=== PATIENT | male | born 1940 | race Caucasian/White ===

== ENCOUNTER → 2019-03-11 08:55 | Outpatient (CLI) | payer MEDICARE, OTHER, SELFPAY ==
--- NOTE | ~2019-03-11 | XR_ITS ---
EXAMINATION: XR chest 2V EXAM DATE: 03/11/2019 09:05 INDICATION: Pneumonia. TECHNIQUE: Frontal and lateral projections of the chest obtained and reviewed. Comparison is made to prior examination from 09/05/2017. FINDINGS: Multiple sternotomy wire breaks could indicate sternal dehiscence. There is aortic arteria l sclerosis. The lungs are clear. There are no pleural effusions. The cardiomediastinal silhouette is within normal limits. There is no pneumothorax suspected. Patient has diffuse idiopathic skeleta l hyperostosis (DISH). IMPRESSION: No acute cardiopulmonary findings. Reviewed, dictated and finalized at location B. ERSITY LIBRARIAN
== END ==
PROVIDERS: PCP Physician Assistant; Visit Provider Physician Assistant
DX: J18.9 Pneumonia, unspecified organism (principal)
CPT/HCPCS: 71046

== ENCOUNTER 2019-06-17 14:24 | Outpatient (CLI) | payer MEDICARE, OTHER, SELFPAY ==
[2019-06-17 14:48] LABS: Basophils Percent Auto 0.4 % (0.2-1.2); Eosinophils Absolute Auto 0.2 K/mm3 (0-0.3); Eosinophils Percent Auto 3.2 % (0-4.4); Hematocrit 36.4 % (42.0-52.0); Hemoglobin 11.3 g/dL (14.0-18.0); Immature Granulocyte Absolute 0.02 K/mm3 (0.00-0.031); Immature Granulocyte Percent A 0.3 % (0-0.5); Immature Reticulocyte Fraction 13.5 % (3.0-15.9); Mean Corpuscular Volume 90.3 fl (80-100); Mean Platelet Volume 12.7 fl (7.4-10.4); Monocytes Absolute Auto 0.7 K/mm3 (0.1-0.6); Monocytes Percent Auto 9.6 % (2.6-8.5); Neutrophils Absolute Auto 4.4 K/mm3 (1.3-6.7); Neutrophils Percent Auto 60.5 % (45.5-73.1); Platelet Count Result 151 k/mm3 (150-375); Red Blood Count 4.03 M/mm3 (4.6-6.20); Reticulocyte Hemoglobin Conten 36.2 pg (28.2-35.7); Reticulocyte Percent 1.52 % (0.7-4.3); Reticulocytes Absolute 0.06 B/L (32.2-175.7); White Blood Count 7.3 K/mm3 (4.5-10.0)
[2019-06-17 15:02] LABS: Platelet Estimate Adequate (Adequate)
[2019-06-17 15:03] LABS: Atypical Lymphocytes Present
[2019-06-17 15:08] LABS: Ovalocytes 1+ (NORMAL); Poikilocytosis 1+ (NORMAL)
[2019-06-17 16:32] LABS: Iron 116 ug/dL (49-181)
[2019-06-17 16:41] LABS: Percent Iron Saturation 36 % (20-50)
[2019-06-17 16:43] LABS: Alanine Aminotransferase 69 U/L (4-50); Alkaline Phosphatase 71 U/L (38-126); Aspartate Amino Transferase 58 U/L (17-59); Bilirubin,Total 0.3 mg/dL (0.2-1.3); Blood Urea Nitrogen 35 mg/dL (9-20); Calcium 8.7 mg/dL (8.4-10.2); Carbon Dioxide 27 mmol/L (22-30); Chloride 104 mmol/L (98-107); Estimated Glomerular Filt Rate 42; Glucose 101 mg/dL (75-110); Potassium 5.1 mmol/L (3.4-5.0); Sodium 138 mmol/L (137-145)
[2019-06-17 17:22] LABS: Vitamin B12 > 1000.0 pg/mL (239-931)
== END 2019-06-17 14:25 | disposition home or self-care (01) ==
LOC: ANHLAB 14:31
PROVIDERS: PCP Family Medicine; Visit Provider Internal Medicine Hematology & Oncology
DX: D64.9 Anemia, unspecified (principal)
CPT/HCPCS: 36415; 80053; 82607; 82728; 83540; 83550; 85025; 85046

== ENCOUNTER → 2019-10-08 13:35 | Outpatient (CLI) | payer MEDICARE, OTHER, SELFPAY ==
--- NOTE | ~2019-10-08 | XR_ITS ---
EXAMINATION: XR shoulder RT min 2V DATE: 10/08/2019 13:53 INDICATION: Right shoulder pain. TECHNIQUE: 4 views of right shoulder were obtained. COMPARISON: None. FINDINGS: Bone alignment is normal. No fracture. There is mild osteoarthritis of glenohumeral joint a nd acromioclavicular joint. Median sternotomy wires and mediastinal surgical clips are seen, likely f rom prior coronary artery bypass grafting. IMPRESSION: 1. Mild polyarticular osteoarthritis. Reviewed, dictated and finalized at location B.
== END ==
PROVIDERS: PCP Family Medicine; Visit Provider Family Medicine
DX: M19.011 Primary osteoarthritis, right shoulder (principal)
CPT/HCPCS: 73030

== ENCOUNTER 2020-03-31 16:35 | Inpatient (IN) | payer MEDICARE, OTHER, SELFPAY ==
--- NOTE | ~2020-03-31 | XR_ITS ---
EXAMINATION: XR chest 2V EXAM DATE: 03/31/2020 17:05 INDICATION: Shortness of breath and chest tightness. History COPD. TECHNIQUE: Frontal and lateral projections of the chest obtained and reviewed. Comparison is made to prior examination from 03/11/2019. FINDINGS: There are multiple sternotomy wire fractures with separation, possible sternal dehiscence. Similar appearance on prior study. The cardiomediastinal silhouette is prominent but magnified on th is AP technique an stable compared to prior study. There are small bilateral subpulmonic pleural e ffusions. Possible mild basilar pulmonary edema. There is pulmonary vascular congestion. There is no pneumothorax suspected. There are no osteoblastic or osteolytic lesions identified. There is aortic arteriosclerosis. IMPRESSION: Findings suspicious for CHF exacerbation. Reviewed, dictated and finalized at location A. SEWER
--- NOTE | ~2020-03-31 | US_ITS ---
EXAMINATION: US carotid duplex BI DATE: 04/01/2020 14:45 INDICATION: Carotid bruit TECHNIQUE: Grayscale, color Doppler, and pulsed Doppler images of the cervical carotid arteries were obtained. The degree of vessel stenosis is placed in one of the following categories: normal, <50%, 5 0-69%, >=70% but less than near-occlusion, near-occlusion, or total occlusion. Note that percent sten osis relative to normal distal artery lumen diameter is indirectly measured from velocity measurement s as described by Beltran, et al. Radiology 2003; 229:340-346. COMPARISON: 09/05/2017 FINDINGS: RIGHT: The right common carotid artery (CCA) peak systolic velocity (PSV) is 165 cm/s. The right internal ca rotid artery (ICA) PSV is 97 cm/s. The right ICA end-diastolic velocity (EDV) is 14 cm/s. The right I CA/CCA PSV ratio is 0.9. Grayscale and color Doppler images yield an estimate of <50% diameter reduct ion from plaque in the ICA. The external carotid artery (ECA) PSV is 120 cm/s. There is antegrade cecille w in the right vertebral artery. LEFT: The left CCA PSV is 120 cm/s. The left ICA PSV is 194 cm/s. The left ICA EDV is 31 cm/s. The left ICA /CCA PSV ratio is 1.6. Grayscale and color Doppler images yield an estimate of 50-69% diameter reduct ion from plaque in the ICA. The ECA PSV is 194 cm/s. There is antegrade flow in the left vertebral ar natalie. IMPRESSION: 1. <50% stenosis in the right internal carotid artery. 2. 50-69% stenosis in the left internal carotid artery. Reviewed, dictated and finalized at location A. ING MACHINE OPERATOR
--- NOTE | ~2020-03-31 | US_ITS ---
EXAMINATION: US thrombin injection DATE: 04/02/2020 15:35 INDICATION: Right femoral artery pseudoaneurysm TECHNIQUE: The procedure including the risks and benefits was discussed with the patient. Risks discu ssed included bleeding infection and allergic reaction. The patient understood the risks and agreed t o proceed. Arterial waveforms were confirmed at the right great toe prior to the procedure. The skin overlying the groin was prepped and draped in usual sterile fashion. Anesthetic was administered wit h 1% lidocaine subcutaneously. A 25-gauge needle was advanced under continuous ultrasound observation into the pseudoaneurysm at the opposite and from the feeding neck. 2 aliquots of 50 units of thrombi n were injected into the pseudoaneurysm or maintaining occlusive pressure over the neck. Echogenic cl ot formed first at the distal aspect of the pseudoaneurysm and progressing throughout the entire pseu doaneurysm within 1-2 minutes. Pressure sufficient to prevent flow within the neck as observed with c olor Doppler was maintained for 10 minutes. With diminishment of pressure however there was rapid ree xpansion of mobile blood into the pseudoaneurysm with compression of the clot against the margins of the pseudoaneurysm. The needle was removed and the entry site was cleaned and dressed. Post procedu re ultrasound demonstrated no hemorrhage. Arterial waveforms were again confirmed at the right great toe at the conclusion of the procedure. FINDINGS/IMPRESSION: Ultrasound images demonstrate initial complete thrombosis of the right femoral artery pseudoaneurysm with subsequent recanalization of molar blood flow within the pseudoaneurysm and compression of the t hrombus against the mcwilliams of the pseudoaneurysm. The failure to obtain occlusive thrombus may be rela sumi to the relatively recent discontinuation of anticoagulation. Could consider continuing to hold an ticoagulation and reattempting the procedure tomorrow. Reviewed, dictated and finalized at location A. ET MENDER
--- NOTE | ~2020-03-31 | US_ITS ---
EXAMINATION: US arterial duplex LE RT DATE: 04/01/2020 14:56 INDICATION: Recent cardiac catheterization with right femoral access. Assess for pseudoaneurysm. TECHNIQUE: Multiple grayscale and Doppler ultrasound images of the right groin were obtained. COMPARISON: None FINDINGS: The right common femoral, superficial femoral and deep (profunda) femoral arteries are patent with no rmal biphasic arterial waveforms with brisk systolic upstrokes. The visualized portions of the right common femoral, superficial femoral, deep (profunda) femoral and greater saphenous veins are patent w ith normal venous waveforms. No arterialization to suggest arteriovenous fistula. Swirling flow is se en on color Doppler within a 3.4 x 1.6 x 2.2 cm pseudoaneurysm. The pseudoaneurysm arises from the ri ght superficial femoral artery with bidirectional flow seen along the 8mm long thin neck of the pseud oaneurysm. IMPRESSION: 1. 3.4 x 1.6 x 2.2 cm right superficial femoral artery pseudoaneurysm which appears likely amenable t o ultrasound-guided percutaneous thrombin injection. Reviewed, dictated and finalized at location A. HALMIC MEDICAL ASSISTANT IMPRESSION: 1. 3.4 x 1.6 x 2.2 cm right superficial femoral artery pseudoaneurysm which verónica ears likely amenable to ultrasound-guided percutaneous thrombin injection.
--- NOTE | 2020-03-31 16:45 | ECG_ITS ---
Measurements Intervals [place] Rate: 62 P: 16 MI: 189 QRS: 52 QRSD: 98 T: 60 QT: 415 QTc: 422 Interpretive Statements SINUS RHYTHM POSSIBLE LEFT ATRIAL ENLARGEMENT BASELINE ARTIFACT- V1-V2 BORDERLINE ECG Electronically Signed On 03-31-2020 19:46:18 DRIVE THRU ORDER TAKER by Galdino Sauer D.O.
[2020-03-31 16:46] VITALS: BP 152/40; PULSE 59; RESP 18; TEMP 36.6; O2SAT 96
[2020-03-31 16:57] LABS: Basophils Percent Auto 0.3 % (0.2-1.2); Eosinophils Absolute Auto 0.2 K/mm3 (0-0.3); Eosinophils Percent Auto 2.8 % (0-4.4); Hematocrit 28.3 % (42.0-52.0); Hemoglobin 9.1 g/dL (14.0-18.0); Immature Granulocyte Absolute 0.04 K/mm3 (0.00-0.031); Immature Granulocyte Percent A 0.5 % (0-0.5); Lymphocytes Absolute Auto 1.24 K/mm3 (0.9-3.2); Lymphocytes Percent Auto 16.3 % (18.3-44.2); Mean Corpuscular HGB Conc 32.2 g/dl (32-36); Mean Corpuscular Hemoglobin 31.9 pg (26-34); Mean Corpuscular Volume 99.3 fl (80-100); Monocytes Absolute Auto 0.8 K/mm3 (0.1-0.6); Monocytes Percent Auto 10.4 % (2.6-8.5); Neutrophils Absolute Auto 5.3 K/mm3 (1.3-6.7); Neutrophils Percent Auto 69.7 % (45.5-73.1); Platelet Count Result 163 k/mm3 (150-375); Red Blood Count 2.85 M/mm3 (4.6-6.20); White Blood Count 7.6 K/mm3 (4.5-10.0)
[2020-03-31 17:10] LABS: Anion Gap 3 mmol/L (8-16); Blood Urea Nitrogen 31 mg/dL (9-20); Calcium 8.1 mg/dL (8.4-10.2); Carbon Dioxide 28 mmol/L (22-30); Chloride 107 mmol/L (98-107); Estimated CRCL calculation 35 ml/min; Estimated Glomerular Filt Rate 49; Glucose 120 mg/dL (75-110); Potassium 4.6 mmol/L (3.4-5.0); Sodium 138 mmol/L (137-145)
[2020-03-31 17:21] LABS: Troponin I < 0.012 ng/mL (0.000-0.034)
[2020-03-31 18:38] LABS: NT Pro B Type Natriuretic Pept 2550 PG/ML (5-100)
[2020-03-31 19:53] VITALS: BP 163/50; PULSE 61; RESP 18; TEMP 36.7; O2SAT 96
[2020-03-31] MEDS: FUROSEMIDE INJ 40 MG/4 ML VIAL IV PUSH (20:20)
--- NOTE | 2020-03-31 20:29 | ED.GENADULT ---
HPI - General Adult General Chief complaint: Shortness of Breath/Dyspnea Stated complaint: SOB, Chest Pain Time Seen by Provider: 03/31/20 20:16 Source: patient and old records reviewed Mode of arrival: ambulatory Limitations: no limitations History of Present Illness HPI narrative: Patient is an 79-year-old male who presents to emergency department for evaluation of shortness of breath and chest pain patient has been having worsening shortness of breath over the last week with some orthopnea and dyspnea on exertion patient with history of heart failure patient a week ago was seen at an outside hospital described at [facility] where he went in for chest pain and shortness of breath noting that he had a clean cardiac catheterization at which time he was started back on his Lasix which had been removed as a medication when he went to [facility] a few weeks prior when he was admitted for a hypertensive urgency and taken off of his Lasix and had his blood pressure medication change. Patient is followed by Dr. Roth at [facility] and has been going to other hospitals for intermittent care. Patient notes he gets intermittent chest pain and heaviness which has been ongoing. Patient notes that he has been taking 20 mg of Lasix over the course of the last week Related Data Home Medications Medication Instructions Recorded Confirmed furosemide 40 mg tablet 40 mg PO QAM 12/24/18 02/10/20 pantoprazole 40 mg tablet,delayed 40 mg PO QAM 12/24/18 02/10/20 release tiotropium bromide 18 mcg capsule 1 cap INHALATION DAILY 12/24/18 02/10/20 with inhalation device calcium carbonate 600 mg calcium 600 mg PO DAILY 04/18/19 02/10/20 (1,500 mg) tablet cholecalciferol (vitamin D3) 25 1,000 unit PO DAILY 04/18/19 02/10/20 mcg (1,000 unit) capsule ezetimibe 10 mg tablet 10 mg PO DAILY 04/18/19 02/10/20 magnesium 250 mg tablet 500 mg PO BID tablet 04/18/19 02/10/20 mecobalamin (vitamin B12) 1,000 1,000 mcg PO DAILY 04/18/19 02/10/20 mcg chewable tablet Allergies Allergy/AdvReac Type Severity Reaction Status Date / Time hydrochlorothiazide Allergy Unknown low sodium Verified 03/09/20 11:03 niacin Allergy Unknown flashes Verified 01/26/21 11:03 Review of Systems Review of Systems: All systems reviewed & are unremarkable except as noted in HPI and below PMFSH Past Medical History Medical History Carpal tunnel syndrome of right wrist Cataract fragments in both eyes following surgery CKD (chronic kidney disease) Sees Dr Hogan Mixed hyperlipidemia Surgical History Surgical History History of prostate surgery Hx of CABG Hx of cholecystectomy Family History Family History Sibling Family history of cardiovascular disease, Onset Age: 80 Father Family history of sudden , Onset Age: 43 Other Malignant neoplasm of prostate Social History Social History Smoking status: Former smoker Alcohol intake: never Exam Narrative: Exam Narrative: GENERAL: Well-appearing, well-nourished, and in no acute distress. HEAD: Normocephalic, atraumatic. EYES: PERRLA and EOMI. ENT: Nares clear, no rhinorrhea or epistaxis. Mucous membranes moist. NECK: Supple. No adenopathy or masses. No carotid bruits or JVD CHEST: Diminished on auscultation. No respiratory distress. Slight crackles in the lung bases HEART: Regular rate and rhythm. No murmur heard. Normal peripheral pulses. ABDOMEN: Soft, nontender, nondistended EXTREMITIES: Normal range of motion. 2+ edema lower extremities SKIN: Warm, dry, no rash. NEURO: No focal deficits. Alert and oriented x3. Cranial nerves II through XII grossly intact PSYCH: Normal mood and affect. Course Course Emergency Course: Patient was given
[2020-03-31 21:18] LABS: Troponin I < 0.012 ng/mL (0.000-0.034)
[2020-03-31 21:48] VITALS: BP 177/71; PULSE 63; RESP 18; O2SAT 95
[2020-03-31 22:08] LABS: Cholesterol 98 mg/dL (0-200); HDL Direct 33 mg/dL; Triglycerides 70 mg/dL (<150)
[2020-03-31 22:19] LABS: LDL Cholesterol Direct 45 mg/dL
[2020-03-31 23:23] VITALS: BP 185/45; PULSE 69; RESP 20; TEMP 36.4; O2SAT 96
--- NOTE | 2020-03-31 23:33 | ADMGEN ---
This patient, Herman Clements, was admitted to IMU Room 211-01 on 03-31-20 at 2323. Patient/family oriented to hospital policies and general routines including ID bracelet, bed and alarms, visiting hours, pain management, procedures, bathroom and other care routines, personal items, smoking policy, room service/diet, and visiting hours. Information on how to activate the Rapid Response Team has been discussed. Patient/Family are encouraged to report perceived risks to care and to ask questions if they do not understand what they are told or what they should do.
[2020-04-01] VITALS (13 sets, daily range): BP systolic 122–164; BP diastolic 39–48; PULSE 55–66; RESP 12–20; TEMP 36.6–37.2; O2SAT 95–97
[2020-04-01 00:27] LABS: Troponin I 0.012 ng/mL (0.000-0.034)
[2020-04-01] MEDS: ASPIRIN 81 MG CHEWABLE TABLET PO (08:13)
--- NOTE | 2020-04-01 08:41 | PM.IMHP ---
H&P: HPI History of Present Illness Date/Time: 04/01/20 08:41 PATIENT IS PLACED UNDER OBSERVATION Chief Complaint: SOB and CP Narrative: Herman Clements is a 79 year old male with dCHF, COPD, CAD/CABG and CKD who presents with complaints of SOB and CP. Patient seen at [facility] on 02/29/20 for chest pain and admitted. He had BP 219/62 and Cr 1.8 on admission. CTA chest negative for PE. Echo 03/01/20 showing EF 73% with asymmetric septal hypertrophy. Nitro drip used to manage BP. Home meds resumed and Norvasc added. Lasix held due to elevated Cr (baseline 1.3-1.4). Patient discharged on 03/03/20. He was seen by his PCP on 03/09 with BP listed as 144/52; Norvasc was advanced to 5mg BID. Patient seen in ED at [facility] on 03/22/20 for CP and SOB. Cr was 1.12-1.18. C 03/24/20 showing severe three-vessel coronary disease with occluded saphenous vein graft to the posterior descending artery. The other 3 grafts were open. Patient was discharged home on March 25, 2020. He was resumed on his Lasix 20mg daily. Since being home, patient continues to have chronic chest pain. Severity waxes and wanes. Slight nausea but no radiatin or diaphoresis with the pain. Swallowing seems to make it worse. He does have occasional mid chest dysphagia with occasional vomiting to clear the esophagus. He had EGD last year requiring esophageal dilation. He scheduled for a repeat EGD in May. The night prior to admission patient had trouble sleeping at night with orthopnea symptoms. No PND. He has noted increasing pedal edema despite being on the Lasix. On the day of admission he noted increasing dyspnea on exertion. He has a dry cough that is chronic. No fever or chills. He denies palpitations. He normally checks his weight daily but has not done so over the past few days. He maintains a low sodium diet. He presented to the emergency room because of the shortness of breath and chest pain. In the emergency room, patient was hemodynamically stable. His creatinine was 1.4. Hemoglobin was 9.1. He does have bruising of the right leg from the heart catheterization. He denies any melena, hematochezia or hematemesis. BNP was 2550. Troponin negative x2. EKG showing no acute changes. Chest x-ray consistent with CHF exacerbation. Patient was treated with Lasix IV and admitted for further care. He did have some mild left flank pain overnight but this has resolved. He denies dysuria or hematuria. He feels better this morning with the diuresis. Review of Systems Review of Systems: All systems reviewed & are unremarkable except as noted in HPI and below PMFSH Past Medical History Medical History (Updated 04/02/20 @ 17:33 by Werner Gabriel MD) Anemia in chronic kidney disease CAD (coronary artery disease) 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
[2020-04-01] MEDS: OPTI-GEN TAB 1 TABLET PO (11:43)
[2020-04-01] MEDS: carvediloL 25 MG TABLET PO ×2 (11:43→21:44)
[2020-04-01] MEDS: PANTOPRAZOLE 40 MG TABLET PO (11:43)
[2020-04-01] MEDS: EZETIMIBE 10 MG TABLET PO (11:43)
[2020-04-01] MEDS: APIXABAN 2.5 MG TABLET PO ×2 (11:43→22:04)
[2020-04-01] MEDS: amLODIPine BESYLATE 5 MG TABLET PO ×2 (11:43→21:44)
[2020-04-01] MEDS: CYANOCOBALAMIN 1,000 MCG TABLET 1000 MCG PO (11:43)
[2020-04-01] MEDS: CALCIUM CARBONATE (OSCAL) 500 MG TABLET PO (11:43)
[2020-04-01] MEDS: CHOLECALCIFEROL 1,000 UNITS TABLET 1000 UNITS PO (11:43)
[2020-04-01] MEDS: PSYLLIUM POWDER PACKET 1 PACKET PO (11:44)
[2020-04-01] MEDS: LEVOTHYROXINE SODIUM 50 MCG TABLET PO (11:44)
[2020-04-01] MEDS: cycloSPORINE 0.4 ML OPHTH SOLUTION 1 DROP EACH EYE ×2 (12:14→21:45)
--- NOTE | 2020-04-01 13:45 | PM.CNCAR ---
Assessment and Plan Assessment and plan (1) Acute exacerbation of CHF (congestive heart failure): Code(s): I50.9 - Heart failure, unspecified Status: Acute Assessment and Plan: This is diastolic in etiology. Will gently diurese her 20 mg IV q.12 hours of furosemide. Basic metabolic panel in the morning. (2) CAD (coronary artery disease): Code(s): I25.10 - Atherosclerotic heart disease of [place] coronary artery without angina pectoris Status: Acute Assessment and Plan: As detailed in history above. One graft to the PDA is occluded but the remaining grafts are open. Treat medically. Continue his current regimen but will add isosorbide mononitrate 30 mg daily. (3) Hx pulmonary embolism: Code(s): Z86.711 - Personal history of pulmonary embolism Status: Resolved Assessment and Plan: Continue Eliquis (4) CKD (chronic kidney disease): Qualifiers: Chronic kidney disease stage: stage 3 (moderate) Chronic kidney disease stage 3 subtype: stage 3a (GFR 45-59) Qualified Code(s): N18.31 - Chronic kidney disease, stage 3a Code(s): N18.9 - Chronic kidney disease, unspecified Status: Acute (5) Chest pain: Code(s): R07.9 - Chest pain, unspecified Status: Acute Assessment and Plan: Will start isosorbide mononitrate 30 mg daily (6) Benign essential HTN: Code(s): I10 - Essential (primary) hypertension Status: Acute Assessment and Plan: Above goal History of Present Illness History of Present Illness Consult date/time: 04/01/20 13:45 Requesting physician: Markie Suggs PA-C Consult reason: chest pain and shortness of breath Reason For Visit: chf exacerbation, chest pain Narrative: Date of service 04/01/2020 History patient is is an 79-year-old male patient of Dr. Davidson with a history of diastolic heart failure, CAD and history CABG who has been now to 3 different hospitals in a month. He was seen at [facility] on February 28 for chest pain. He had markedly elevated blood pressure at that time. CT scan of chest was negative. Echocardiogram showed asymmetric septal hypertrophy. He was started on nitroglycerin drip and amlodipine was added. He was discharged and then admitted to [facility] for chest pain or shortness of breath on March 22. There he underwent a coronary angiogram on 03/24/2020 showing 3 vessel CAD with an occluded SVG to the PDA. Other grafts were open. He was started on furosemide 20 mg daily and then discharged home. He came back to this hospital because he continues to have issues with chest pain/pressure with activity as well as significant dyspnea with exertion. He also had some troubles breathing whenever he was lying down. His symptoms generally occur by doing things such as climbing up a flight of stairs. He also describes some paroxysmal nocturnal dyspnea as well as worsening swelling. He denies any syncope but does have some dizziness. No palpitations or bleeding problems. Symptoms have been occurring for at least 1 month. Review of Systems Review of Systems: All systems reviewed & are unremarkable except as noted in HPI and below Constitutional: Constitutional: Denies weakness Eyes: Eyes: Denies blurry vision ENT: Reports Normal hearing present Cardiovascular: Cardiovascular: Reports chest pain Respiratory: Respiratory: Reports dyspnea Gastrointestinal: Gastrointestinal: Denies abdominal pain Genitourinary: Genitourinary: Denies urinary frequency Musculoskeletal: Musculoskeletal: Denies neck pain Integumentary/Breasts: Skin/Breast: Denies dry skin Neurologic: Denies headache(s) Psychiatric: Psychiatric: Denies anxiety Endocrine: Endocrine: Denies excessive sweating Hematologic/Lymphatic: Hematologic/Lymphatic: Denies easy bleeding Allergic/Immunologic: Allergic/Immunologic: Denies GI upset with certain foods PMFSH Past Medical History Medical
[2020-04-01] MEDS: ISOSORBIDE MONONITRATE 30 MG TAB.ER.24H PO (16:32)
[2020-04-01] MEDS: FUROSEMIDE INJ 40 MG/4 ML VIAL 20 MG IV PUSH (16:34)
[2020-04-01] MEDS: MAGNESIUM 27 MG TABLET (500 MG MAG GLUCONATE) PO (16:34)
[2020-04-01] MEDS: ATORVASTATIN 40 MG TABLET PO (21:44)
[2020-04-02] VITALS (13 sets, daily range): BP systolic 131–154; BP diastolic 37–45; PULSE 53–70; RESP 12–16; TEMP 36.1–37.3; O2SAT 94–99
[2020-04-02 05:09] LABS: Basophils Percent Auto 0.3 % (0.2-1.2); Eosinophils Absolute Auto 0.2 K/mm3 (0-0.3); Eosinophils Percent Auto 3.2 % (0-4.4); Hematocrit 25.7 % (42.0-52.0); Hemoglobin 8.2 g/dL (14.0-18.0); Immature Granulocyte Absolute 0.02 K/mm3 (0.00-0.031); Immature Granulocyte Percent A 0.3 % (0-0.5); Lymphocytes Absolute Auto 1.47 K/mm3 (0.9-3.2); Lymphocytes Percent Auto 21.1 % (18.3-44.2); Mean Corpuscular HGB Conc 31.9 g/dl (32-36); Mean Corpuscular Hemoglobin 30.9 pg (26-34); Mean Platelet Volume 11.9 fl (7.4-10.4); Monocytes Absolute Auto 0.8 K/mm3 (0.1-0.6); Monocytes Percent Auto 10.9 % (2.6-8.5); Neutrophils Absolute Auto 4.5 K/mm3 (1.3-6.7); Neutrophils Percent Auto 64.2 % (45.5-73.1); Platelet Count Result 176 k/mm3 (150-375); Red Blood Count 2.65 M/mm3 (4.6-6.20); Red Cell Distribution Width 13.2 % (11.5-14.5)
[2020-04-02 05:25] LABS: Alanine Aminotransferase 31 U/L (4-50); Albumin Level 2.9 g/dL (3.5-5.1); Alkaline Phosphatase 62 U/L (38-126); Anion Gap 2 mmol/L (8-16); Aspartate Amino Transferase 31 U/L (17-59); Bilirubin,Total 0.5 mg/dL (0.2-1.3); Blood Urea Nitrogen 31 mg/dL (9-20); Carbon Dioxide 27 mmol/L (22-30); Chloride 107 mmol/L (98-107); Estimated CRCL calculation 38 ml/min; Estimated Glomerular Filt Rate 53; Glucose 97 mg/dL (75-110); Magnesium 2.2 mg/dL (1.6-2.3); Phosphorus 3.6 mg/dL (2.5-4.5); Potassium 4.1 mmol/L (3.4-5.0); Sodium 136 mmol/L (137-145)
[2020-04-02 05:45] LABS: Iron 55 ug/dL (49-181)
[2020-04-02 05:54] LABS: Percent Iron Saturation 23 % (20-50)
[2020-04-02] MEDS: LEVOTHYROXINE SODIUM 50 MCG TABLET PO (06:08)
[2020-04-02 06:30] LABS: Folic Acid > 20.0 ng/mL (2.76->20)
[2020-04-02] MEDS: carvediloL 25 MG TABLET PO ×2 (08:50→20:26)
[2020-04-02] MEDS: EZETIMIBE 10 MG TABLET PO (08:50)
[2020-04-02] MEDS: CALCIUM CARBONATE (OSCAL) 500 MG TABLET PO (08:50)
[2020-04-02] MEDS: FUROSEMIDE INJ 40 MG/4 ML VIAL 20 MG IV PUSH ×2 (08:50→16:23)
[2020-04-02] MEDS: CHOLECALCIFEROL 1,000 UNITS TABLET 1000 UNITS PO (08:50)
[2020-04-02] MEDS: CYANOCOBALAMIN 1,000 MCG TABLET 1000 MCG PO (08:50)
[2020-04-02] MEDS: cycloSPORINE 0.4 ML OPHTH SOLUTION 1 DROP EACH EYE ×2 (08:50→20:26)
[2020-04-02] MEDS: amLODIPine BESYLATE 5 MG TABLET PO ×2 (08:50→20:26)
[2020-04-02] MEDS: ISOSORBIDE MONONITRATE 30 MG TAB.ER.24H PO (08:51)
[2020-04-02] MEDS: OPTI-GEN TAB 1 TABLET PO (08:51)
[2020-04-02] MEDS: PSYLLIUM POWDER PACKET 1 PACKET PO (08:51)
[2020-04-02] MEDS: PANTOPRAZOLE 40 MG TABLET PO (08:51)
[2020-04-02] MEDS: MAGNESIUM 27 MG TABLET (500 MG MAG GLUCONATE) PO ×2 (08:51→16:23)
--- NOTE | 2020-04-02 10:26 | PM.PNCARD ---
Progress Note: A&P Additional Plan Coronary artery disease with remote history of bypass grafting. Patient presents here with shortness of breath and evidence of diastolic heart failure. Feeling better following diuresis and has a clear chest. Unfortunately has a femoral artery pseudoaneurysm complicating the catheterization procedure that was done at outside hospital. Patient should be taken off of anticoagulation and would anticipate requesting interventional radiology to attempt thrombin injection of the pseudoaneurysm. Hopefully this will be successful. If not he will need to be transferred to another hospital where vascular surgery consultation is available. Presumably this would be to [facility] since this is a complication of a procedure done at that hospital. Hossein Schmitt MD [facility] Subjective Date/time seen: Date of service: 04/02/20 10:26 Interval history: 79-year-old man with: Diastolic congestive heart failure clinically improving with IV furosemide. Coronary artery disease with remote history of bypass grafting. Recent evaluation with echo and follow-up catheterization demonstrating 3 of 4 grafts patent and normal left ventricular systolic function. Resolving right groin hematoma from recent catheterization at outside hospital. Ultrasound yesterday unfortunately does show evidence of a pseudoaneurysm at the site of the femoral artery. Hemoglobin has declined from yesterday. Exam Const: General: comfortable and no acute distress HENMT: Mouth: Yes moist mucous membranes Eyes: Sclera: sclerae normal Pupils: Equal, round and reactive pupils present Neck: Neck: supple and no JVD Resp: Effort & Inspection: normal respiratory effort Auscultation: clear to auscultation bilaterally Other: Breath sounds are essentially clear now with no rales rhonchi or wheezing Cardio: Rate: regular rate Rhythm: regular rhythm GI: GI Palp: Yes Soft to palpation Auscultation: normal bowel sounds Skin: General skin exam: normal color Neuro: Cognition (Neuro): normal cognition Extrem: Other: Some degree of hematoma and bruit over the femoral puncture site Objective Data Vital Signs Vital Signs: Vital Signs - 24 hr 04/01/20 11:43 04/01/20 12:00 04/01/20 14:00 Temperature 37.2 C Pulse Rate 58 L 66 59 L Respiratory Rate 12 Blood Pressure 156/39 H Pulse Oximetry 96 04/01/20 16:00 04/01/20 18:00 04/01/20 20:00 Temperature 36.9 C 36.7 C Pulse Rate 60 56 L 55 L Respiratory Rate 12 12 Blood Pressure 140/40 L 122/42 L Pulse Oximetry 97 95 04/01/20 21:44 04/01/20 22:00 04/02/20 00:00 Temperature 36.1 C L Pulse Rate 58 L 58 L 63 Respiratory Rate 16 Blood Pressure 131/45 L Pulse Oximetry 96 04/02/20 02:00 04/02/20 04:00 04/02/20 06:00 Temperature 36.1 C L Pulse Rate 64 62 57 L Respiratory Rate 12 Blood Pressure 140/37 L Pulse Oximetry 94 04/02/20 08:00 04/02/20 08:50 Temperature 36.7 C Pulse Rate 56 L 70 Respiratory Rate 12 Blood Pressure 154/38 H Pulse Oximetry 98 Intake/Output Intake/Output: Intake & Output 03/30/20 03/31/20 04/01/20 04/02/20 23:59 23:59 23:59 23:59 Intake Total 240 1020 440 Output Total 2300 300 Balance 240 -1280 140 Meds/Results Medications: Active Medications Generic Name Dose Route Start Last Admin Trade Name Freq PRN Reason Stop Dose Admin Acetaminophen 650 mg 03/31/20 20:56 Acetaminophen 325 Mg Tablet PO Q4H PRN Mild Pain (1-3) Al Hydrox/Mg Hydrox/Simethicone 30 ml 03/31/20 20:56 Mag Hydrox/Al Hydrox/Simeth 30 Ml Udc PO Q6H PRN Indigestion Amlodipine Besylate 5 mg 04/01/20 10:35 04/02/20 08:50 Amlodipine Besylate 5 Mg Tablet PO 5 mg Q12HR YESY Administration Apixaban 2.5 mg 04/01/20 10:35 04/01/20 22:04 Apixaban 2.5 Mg Tablet PO 2.5 mg Q12HR YESY Administration Aspirin 81 mg 04/01/20 08:00 04/02/20 08:46 Aspirin 81 Mg Chewable Tablet PO
--- NOTE | 2020-04-02 17:16 | PM.TDS ---
Transfer Discharge Sum: Prov Provider Date of admission: 04/02/20 11:52 Primary care physician: Herman Scott MD Admitting clinician: Payam Turk MD Attending physician on admission: Werner Gabriel Consults: 03/31/20 20:56 Consult to Physician Routine Comment: Consulting Provider: Rodriguez Hall quality assurance consultant/MD group to consult: cardiology Reason for consultation: cardiology Has provider been notified: Yes Attending physician on discharge: Werner Gabriel Discharging clinician: Werner Gabriel Anticipated date of transfer: 04/02/20 Receiving physician/facility: [facility] DS: Admitting Diagnosis Admitting Diagnosis Admitting Diagnosis: Chest pain DS: Discharge Diagnosis Discharge Diagnosis (1) Chest pain: Code(s): R07.9 - Chest pain, unspecified Status: Acute Assessment and Plan: Patient with chronic atypical chest pain. Recent left heart catheterization results showing 3 of the 4 grafts open. Troponins are negative x3. EKG showing no acute findings. Suspect symptoms are more likely related to esophageal dysmotility or stricture than cardiac. Could be a component of demand ischemia from his CHF although felt less likely. Cardiology consulted. Chest pain still intermittent and medications adjusted with the addition of Imdur. (2) Acute exacerbation of CHF (congestive heart failure): Code(s): I50.9 - Heart failure, unspecified Status: Acute Assessment and Plan: Patient placed back on Lasix 1 week ago but with worsening symptoms of CHF exacerbation. He states he is compliant with diet. Encouraged him to be compliant with daily weights and to contact his provider if he has increased weight gain. Started on IV Lasix. Creatinine 1.4 on admission and remained stable at 1.3. Good UOP. (3) Benign essential HTN: Code(s): I10 - Essential (primary) hypertension Status: Acute Assessment and Plan: Blood pressure monitored and was mildly elevated at times. He is also noted to have low diastolic blood pressure. We resumed home medications and add Imdur. Blood pressure improved overall with DBP in the 30-40 range (4) CKD (chronic kidney disease): Qualifiers: Chronic kidney disease stage: stage 3 (moderate) Chronic kidney disease stage 3 subtype: stage 3a (GFR 45-59) Qualified Code(s): N18.31 - Chronic kidney disease, stage 3a Code(s): N18.9 - Chronic kidney disease, unspecified Status: Acute Assessment and Plan: Creatinine 1.4 on admission related to patient being back on his oral Lasix and stable 1.3 today. Will need to be closely monitored on IV diuretics. (5) Hx pulmonary embolism: Code(s): Z86.711 - Personal history of pulmonary embolism Status: Resolved Assessment and Plan: Patient with history of PE and DVT. He is on lifelong therapy since he has had 2 episodes of pulmonary embolism. Hemoglobin is 9 but possibly related to recent hospitalization and blood loss from the procedure given the bruising on exam. 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 (6) CAD (coronary artery disease): Code(s): I25.10 - Atherosclerotic heart disease of [place] coronary artery without angina pectoris Status: Acute Assessment and Plan: Patient has a history of CABG x4 vessel 01/2012. Patient went to [facility] for chest pain last week and had left heart catheterization showing that 1 of the grafts is occluded. He has preserved EF. We continued medical management. (7) Anemia: Qualifiers: Anemia type: unspecified type Qualified Code(s): D64.9 - Anemia, unspecified Code(s): D64.9 - Anemia, unspecified Status: Acute Assessment and Plan: Hgb 9.0 on admission. Hgb normally runs 11 range here. Patient denies any melena, hematochezia or hematemesis. Iron studies normal except TIBC 244. Ferritin 67. B12/Folate normal. He does have
[2020-04-02] MEDS: ATORVASTATIN 40 MG TABLET PO (20:26)
== END 2020-04-02 21:57 | disposition short-term general hospital (02) | DRG 291 ==
LOC: ANHED 20:34 → ANHIMU 22:55
PROVIDERS: Emergency Medicine Emergency Medical Services; Admitting Provider Family Medicine; Emergency Provider Family Medicine; PCP Family Medicine; Visit Provider Internal Medicine
DX: I13.0 Hypertensive heart and chronic kidney disease with heart failure and stage 1 through stage 4 chronic kidney disease, or unspecified chronic kidney disease (principal); I50.33 Acute on chronic diastolic (congestive) heart failure; R07.89 Other chest pain; N18.31 Chronic kidney disease, stage 3a; I25.10 Atherosclerotic heart disease of native coronary artery without angina pectoris; D63.1 Anemia in chronic kidney disease; I72.4 Aneurysm of artery of lower extremity; I65.29 Occlusion and stenosis of unspecified carotid artery; E78.2 Mixed hyperlipidemia; G47.33 Obstructive sleep apnea (adult) (pediatric); J44.9 Chronic obstructive pulmonary disease, unspecified; Z79.01 Long term (current) use of anticoagulants; Z79.899 Other long term (current) drug therapy; Z86.711 Personal history of pulmonary embolism; Z86.718 Personal history of other venous thrombosis and embolism; Z86.73 Personal history of transient ischemic attack (TIA), and cerebral infarction without residual deficits; Z87.891 Personal history of nicotine dependence; Z95.1 Presence of aortocoronary bypass graft
CPT/HCPCS: 36002; 36415; 71046; 76942; 80048; 80053; 80061; 82607; 82728; 82746; 83540; 83550; 83735; 83880; 84100; 84443; 84484; 85025; 93005; 93880; 93926; 96374; 96376; 99285; A9270; G0378; J1940

== ENCOUNTER 2020-07-02 13:20 | Outpatient (CLI) | payer MEDICARE, OTHER, SELFPAY ==
[2020-07-02 13:45] LABS: Basophils Percent Auto 0.1 % (0.2-1.2); Eosinophils Absolute Auto 0.2 K/mm3 (0-0.3); Eosinophils Percent Auto 2.4 % (0-4.4); Hematocrit 33.9 % (42.0-52.0); Hemoglobin 11.2 g/dL (14.0-18.0); Immature Granulocyte Absolute 0.02 K/mm3 (0.00-0.031); Immature Granulocyte Percent A 0.3 % (0-0.5); Lymphocytes Percent Auto 25.3 % (18.3-44.2); Mean Corpuscular Hemoglobin 31.3 pg (26-34); Mean Corpuscular Volume 94.7 fl (80-100); Mean Platelet Volume 12.2 fl (7.4-10.4); Monocytes Absolute Auto 0.5 K/mm3 (0.1-0.6); Monocytes Percent Auto 7.7 % (2.6-8.5); Neutrophils Absolute Auto 4.3 K/mm3 (1.3-6.7); Neutrophils Percent Auto 64.2 % (45.5-73.1); Platelet Count Result 135 k/mm3 (150-375); Red Blood Count 3.58 M/mm3 (4.6-6.20); Red Cell Distribution Width 13.2 % (11.5-14.5); White Blood Count 6.7 K/mm3 (4.5-10.0)
[2020-07-02 16:45] LABS: Anion Gap 8 mmol/L (8-16); Blood Urea Nitrogen 34 mg/dL (9-20); Calcium 8.6 mg/dL (8.4-10.2); Carbon Dioxide 25 mmol/L (22-30); Chloride 105 mmol/L (98-107); Estimated Glomerular Filt Rate 45; Glucose 119 mg/dL (75-110); Iron 64 ug/dL (49-181); Potassium 4.5 mmol/L (3.4-5.0); Sodium 138 mmol/L (137-145)
[2020-07-02 16:55] LABS: Percent Iron Saturation 23 % (20-50)
== END 2020-07-02 13:21 | disposition home or self-care (01) ==
PROVIDERS: PCP Family Medicine; Visit Provider Internal Medicine Hematology & Oncology
DX: D64.9 Anemia, unspecified (principal)
CPT/HCPCS: 36415; 80048; 82728; 83540; 83550; 85025

== ENCOUNTER → 2020-07-10 10:43 | Outpatient (CLI) | payer MEDICARE, OTHER, SELFPAY ==
--- NOTE | ~2020-07-10 | XR_ITS ---
XR hip BI 2V w AP pelvis 07/10/2020 11:37 Indication: Right hip pain Procedure: 5 views right hip Comparison: 09/29/2015 Findings: There is mild bilateral osteoarthritis of the hips. No fracture, subluxation or dislocation . Pelvic rings are intact. Moderate lower lumbar spondylosis. 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 Reviewed, dictated and finalized at location A. 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
--- NOTE | ~2020-07-10 | MR_ITS ---
EXAMINATION: MR lumbar spine wo con DATE: 07/10/2020 11:20 INDICATION: Low back pain. Sciatica. TECHNIQUE: Magnetic resonance imaging (MRI) of the lumbar spine was performed without intravenous con trast. Sequences included sagittal T2-weighted FSE, sagittal T2-weighted FS FSE, sagittal T1-weighted FSE, and axial T2-weighted FSE. COMPARISON: Lumbar spine MRI 10/06/2015 FINDINGS: There is 13 degrees levoscoliosis of lumbar spine. There is 7 mm anterolisthesis of L3 on L 4. There is moderately decreased disc height at L2-L3, severely decreased disc height at L3-L4 and L4 -L5, and mildly decreased disc height at L5-S1 with endplate remodeling. There is chronic height loss of L4 vertebral body on the right. The distal spinal cord signal intensity is normal. The conus medu llaris is at L1. There is a 13 mm cyst in left kidney. The following disc levels are specifically dis cussed: L1-L2: There is a left central protrusion. There is moderate bilateral facet joint osteoarthritis. Th ere is mild right neural foraminal stenosis. There is mild central canal stenosis. L2-L3: The disc is bulging and has an annular fissure. There is severe bilateral facet joint osteoart hritis. There is mild bilateral neural foraminal stenosis. There is no central canal stenosis. L3-L4: The disc is bulging. There is severe bilateral facet joint osteoarthritis. There is severe rig ht and moderate left neural foraminal stenosis. There is moderate central canal stenosis. L4-L5: The disc is bulging and has an annular fissure. There is severe bilateral facet joint osteoart hritis. There is moderate bilateral neural foraminal stenosis. There is mild central canal stenosis. L5-S1: The disc is bulging and has an annular fissure. There is severe bilateral facet joint osteoart hritis. There is mild right and moderate left neural foraminal stenosis. There is mild central canal stenosis. IMPRESSION: 1. Severe lumbar spondylosis, mildly worsened from 10/06/2015. 2. Lumbar levoscoliosis. Reviewed, dictated and finalized at location A.
== END ==
PROVIDERS: PCP Family Medicine; Visit Provider Family Medicine
DX: M16.0 Bilateral primary osteoarthritis of hip (principal); M47.896 Other spondylosis, lumbar region
CPT/HCPCS: 72148; 73521

== ENCOUNTER 2020-12-01 08:07 | Outpatient (CLI) | payer MEDICARE, OTHER, SELFPAY ==
--- NOTE | ~2020-12-01 | US_ITS ---
EXAMINATION: US arterial duplex LE DATE: 12/01/2020 08:56 INDICATION: Peripheral vascular disease. Bilateral lower limb pain. TECHNIQUE: Multiple grayscale and Doppler ultrasound images of the abdomen were obtained. COMPARISON: None FINDINGS: Scattered mild atherosclerotic plaque throughout the right common femoral, superficial femoral and po pliteal arteries all with <50% stenosis on grayscale imaging and with biphasic waveforms with brisk s ystolic upstrokes on color Doppler. The right posterior tibial and dorsalis pedis arteries are too sm all to assess for atherosclerotic plaque, both with brisk systolic upstrokes and monophasic waveforms on color Doppler. Scattered mild atherosclerotic plaque throughout the left common femoral, superficial femoral and pop liteal arteries all with <50% stenosis on grayscale imaging and there are biphasic waveforms with lai sk systolic upstrokes at each of these arteries as well as the left posterior tibial and dorsalis ped is arteries which are too small to assess for atherosclerotic plaque. IMPRESSION: 1. Scattered mild atherosclerotic plaque with brisk systolic upstrokes throughout the arteries of bot h lower limbs. No findings to suggest a hemodynamically significant stenosis. Reviewed, dictated and finalized at location A. IMPRESSION: 1. Scattered mild atherosclerotic plaque with brisk systolic upstrokes througho ut the arteries of both lower limbs. No findings to suggest a hemodynamically s ignificant stenosis.
== END 2020-12-01 08:08 | disposition home or self-care (01) ==
LOC: ANHIMG 08:08
PROVIDERS: PCP Family Medicine; Visit Provider Internal Medicine Cardiovascular Disease
DX: I73.9 Peripheral vascular disease, unspecified (principal); M79.604 Pain in right leg
CPT/HCPCS: 93925

== ENCOUNTER 2021-01-12 08:42 | Outpatient (CLI) | payer MEDICARE, OTHER, SELFPAY ==
--- NOTE | 2021-02-01 14:33 | WPDSLEEPSTUD ---
Sleep Study Date of Study: 01/12/21 <Tessa Santacruz, DO - Last Filed: 02/01/21 15:13> Ordering Provider: Raimundo Alonzo PA-C <Tessa Santacruz, DO - Last Filed: 02/01/21 15:13> Interpreting Physician: Tessa Santacruz DO <Tessa Santacruz, DO - Last Filed: 02/01/21 15:13> Sleep Study Type: Polysomnogram <Tessa Santacruz DO - Last Filed: 02/01/21 15:13> Height: 1.6 m <Tessa Santacruz DO - Last Filed: 02/01/21 15:13> Weight: 77.111 kg <Tessa Santacruz DO - Last Filed: 02/01/21 15:13> Body Mass Index: 30.1 <Tessa Santacruz DO - Last Filed: 02/01/21 15:13> Neck Circumference (inches): 15.5 <Tessa Santacruz DO - Last Filed: 02/01/21 15:13> [place]: 12 <Tessa Santacruz DO - Last Filed: 02/01/21 15:13> Reason for Sleep Study Patient was diagnosed with EVERETT in the past. Recreation Therapy Aides Teacher wants to determine if he currently has EVERETT. <Tessa Santacruz, DO - Last Filed: 02/01/21 15:13> Sleep History The patient is an 80-year-old male with COPD, diastolic congestive heart failure, gastric AVM, chronic kidney disease, carotid stenosis, anemia of chronic disease, spinal stenosis, history of stroke and TIA, history of DVT and PE, and previously diagnosed EVERETT in 2013 that had a PSG ordered by his assessment analyst for evaluation of EVERETT. The patient states that he rarely awakens from sleep short of breath. He occasionally awakens at night with heartburn, belching or cough. He frequently snores and is occasionally loud enough that others complain. He rarely has trouble sleeping when he has a cold. He denies waking up gasping for air throughout the night. He rarely has breathing problems at night observed by others. He occasionally sweats excessively at night. He denies heart palpitations or irregular heartbeats during the night. He frequently falls asleep during the day but never while driving. He rarely experiences loss of muscle tone when extremely emotional. he denies sleep paralysis and hypnagogic/ hypnopompic hallucinations. He rarely has nightmares. He rarely has thoughts racing through his mind. He occasionally feels sad or depressed. He occasionally has anxiety. He rarely notices parts of his body jerk and kicking throughout the night. He occasionally has crawling and aching feelings in his legs. He frequently has leg pain during the night. He rarely grinds his teeth during sleep and rarely awakens with morning jaw pain. He is occasionally bothered by pain during the day but rarely awakened by pain during the night. He occasionally wakes up feeling stiff in the morning with sore and achy muscles. He goes to bed at 10:00 p.m. on both weekdays and weekends. It takes him 15-20 minutes to fall asleep. He typically wakes up 2-3 times per night. When he awakens, he will use restroom. He can fall back asleep within 10-30 minutes. He awakens at 6:00 a.m. on both weekdays and weekends. He typically gets 7-8 hours of sleep per night. He will stay in bed for 5-15 minutes after awakening. He currently lives with his and 3 children. He is currently retired. He does not consume any caffeinated beverages within 2 hours of bedtime. He does not engage in physical exercise before bedtime. He will watch television before falling asleep. He does take naps in the afternoon or the evening and they are refreshing. He currently drinks 2 caffeinated beverages per day. He quit smoking 40 years ago. He denies alcohol and recreational drug use. <Tessa Santacruz DO - Last Filed: 02/01/21 15:13> [facility] Past Medical History Medical History: Medical History Anemia in chronic kidney disease CAD (coronary artery disease) [facility] 2011 3v disease Carotid stenosis 2-21 65% Needs yearly dopplers Carpal tunnel syndrome of right wrist Cataract fragments in both eyes following surgery CKD (ch
[2021-02-01 15:13] VITALS: BMI 30.1
== END 2021-01-13 07:05 | disposition home or self-care (01) ==
LOC: ANHCSM 08:50
PROVIDERS: PCP Family Medicine; Visit Provider Physician Assistant
DX: G47.33 Obstructive sleep apnea (adult) (pediatric) (principal); G47.9 Sleep disorder, unspecified; G47.61 Periodic limb movement disorder
CPT/HCPCS: 95810

== ENCOUNTER → 2021-02-19 08:43 | Outpatient (CLI) | payer MEDICARE, OTHER, SELFPAY ==
--- NOTE | ~2021-02-19 | US_ITS ---
US abdomen complete EXAMINATION: US Abdomen Complete INDICATION: Elevated liver enzymes PROCEDURE: Realtime High Resolution abdomen ultrasound. COMPARISON: No prior studies for comparison FINDINGS: Gallbladder within normal limits. No gallstones, pericholecystic fluid, gallbladder wall t hickening or biliary dilatation. Common bile duct measures 3 mm. Liver echotexture within normal limits without focal mass. Pancreas not well visualized due to bowel gas. Pancreatic tail is obscured by bowel gas. Spleen is unremarkeable. Renal echotexture is withi n normal limits bilaterally without hydronephrosis, contour deforming mass or renal stone. Right kidn ey measures 11.9 cm. Left kidney measures 11.3 cm. The aorta and IVC are not optimally visualized.. Portal vein is patent. No sonographic Colin's sign indicated by the technologist. IMPRESSION: 1: Unremarkable abdominal ultrasound. Reviewed, dictated and finalized at location A. [employer]
== END ==
PROVIDERS: PCP Family Medicine; Visit Provider Physician Assistant
DX: R74.8 Abnormal levels of other serum enzymes (principal)
CPT/HCPCS: 76700

== ENCOUNTER → 2021-02-22 01:12 | Outpatient (CLI) | payer MEDICARE, OTHER, SELFPAY ==
[2021-02-22 21:03] LABS: SARS-CoV-2 RNA PCR Negative
== END ==
PROVIDERS: PCP Family Medicine; Visit Provider Physician Assistant
DX: R05.9 Cough, unspecified (principal); Z20.822 Contact with and (suspected) exposure to COVID-19
CPT/HCPCS: C9803; U0003; U0005

== ENCOUNTER 2021-03-02 07:23 | Outpatient (CLI) | payer MEDICARE, OTHER, SELFPAY ==
--- NOTE | 2021-03-07 09:48 | WPDSLEEPSTUD ---
Sleep Study Date of Study: 03/02/21 Ordering Provider: Herman Scott MD Interpreting Physician: Rachael Panchal MD Sleep Study Type: Split Polysomnogram Height: 1.63 m Weight: 79.379 kg Body Mass Index: 30.0 Neck Circumference (inches): 16.5 [place]: 10 Reason for Sleep Study History of obstructive sleep apnea in the past, recent basic sleep study on 01/12/2021 wit h an overall AHI of 3.4 and a REM AHI of 15 with fragmented sleep. He returns for a repeat study as he appeared to have more obstructive sleep apnea than was seen on the Jan 12, 2021 study with a first night effect. Sleep History Herman Clements is an 80-year-old male with COPD, diastolic congestive heart failure, gastric AVM, chronic kidney disease, carotid stenosis, anemia of chronic disease, spinal stenosis, history of stroke and TIA, history of DVT and PE, and previously diagnosed EVERETT in 2012. He had a basic sleep study Jan 12 showing loud snoring, desaturation 87% with low sleep efficiency. Most of the events were in REM sleep with desaturation to 82%. The patient states that he rarely awakens from sleep short of breath. He occasionally awakens at night with heartburn, belching or cough. He frequently snores and is occasionally loud enough that others complain. He rarely has trouble sleeping when he has a cold. He denies waking up gasping for air throughout the night. He rarely has breathing problems at night observed by others. He occasionally sweats excessively at night. He denies heart palpitations or irregular heartbeats during the night. He frequently falls asleep during the day but never while driving. He rarely experiences loss of muscle tone when extremely emotional. He denies feeling paralyzed on waking or falling asleep, and does not have vivid dream line scenes on waking or falling asleep. He rarely has nightmares. He rarely has thoughts racing through his mind. He occasionally feels sad or depressed. He occasionally has anxiety. He rarely notices parts of his body jerk and kicking throughout the night. He occasionally has crawling and aching feelings in his legs. He frequently has leg pain during the night. He rarely grinds his teeth during sleep and rarely awakens with morning jaw pain. He is occasionally bothered by pain during the day but rarely awakened by pain during the night. He occasionally wakes up feeling stiff in the morning with sore and achy muscles. He goes to bed at 10:00 p.m., taking 15-20 minutes to fall asleep. He typically wakes up 2-3 times per night often to urinate. He can return to sleep within 10-30 minutes. He awakens at 6:00 a.m., typically gets 7-8 hours of sleep per night. He stays in bed for 5-15 minutes after awakening. He currently lives with his and 3 children. He is currently retired. He does take naps in the afternoon or the evening and they are refreshing. Habits: No tobacco for 40 years. Caffeine: 2 beverages per day. No alcohol or recreational drugs. FOR[facility]LY [facility], [facility] Past Medical History Medical History (Updated 03/07/21 @ 10:12 by Rachael Panchal MD) Anemia in chronic kidney disease CAD (coronary artery disease) [facility] 2011 3v disease Carotid stenosis 2-21 65% Needs yearly dopplers Carpal tunnel syndrome of right wrist Cataract fragments in both eyes following surgery CKD (chronic kidney disease) Sees Dr Hogan COPD (chronic obstructive pulmonary disease) PFT showing mild obstruction 2014 CVA (cerebral vascular accident) MRI 2017 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 Diastolic CHF EF 69%, Grade 1 DD Echo 01/2019 Diverticulosis Dyslipidemia Dysphagia 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
== END 2021-03-03 06:27 | disposition home or self-care (01) ==
LOC: ANHCSM 07:24
PROVIDERS: PCP Family Medicine; Visit Provider Family Medicine
DX: G47.33 Obstructive sleep apnea (adult) (pediatric) (principal); Z68.30 Body mass index [BMI] 30.0-30.9, adult
CPT/HCPCS: 95811

== ENCOUNTER → 2021-03-31 14:42 | Outpatient (CLI) | payer MEDICARE, OTHER, SELFPAY ==
--- NOTE | ~2021-03-31 | XR_ITS ---
XR chest 2V DATE: 03/31/2021 14:57 INDICATION: Cough TECHNIQUE: 2 views COMPARISON: 03/31/2020 PA and lateral views FINDINGS: Status post sternotomy. Heart size is borderline. There is extensive thoracic aortic calc ification. No hilar or mediastinal enlargement. No pulmonary infiltrate or consolidation, pulmonary vascular congestion or pleural effusion or pneumo thorax. IMPRESSION: Status post sternotomy Aortic calcification Reviewed, dictated and finalized at location B. D RACKER
== END ==
PROVIDERS: PCP Family Medicine; Visit Provider Physician Assistant
DX: R05.9 Cough, unspecified (principal); I70.0 Atherosclerosis of aorta
CPT/HCPCS: 71046

== ENCOUNTER → 2021-04-01 04:27 | Outpatient (CLI) | payer MEDICARE, OTHER, SELFPAY ==
[2021-04-01 16:45] LABS: SARS-CoV-2 RNA PCR Negative
== END ==
PROVIDERS: PCP Family Medicine; Visit Provider Physician Assistant
DX: R05.9 Cough, unspecified (principal); Z20.822 Contact with and (suspected) exposure to COVID-19
CPT/HCPCS: C9803; U0003; U0005

== ENCOUNTER 2021-05-10 08:43 | Emergency (ER) | payer MEDICARE, OTHER, SELFPAY ==
[2021-05-10] VITALS (19 sets, daily range): BP systolic 182–217; BP diastolic 52–103; PULSE 54–88; RESP 11–33; TEMP 37.1; O2SAT 94–99
--- NOTE | ~2021-05-10 | CT_ITS ---
EXAMINATION:CT diagnostic chest w con DATE: 05/10/2021 12:02 INDICATION: Primary pancreatic cancer. TECHNIQUE: Computed tomography (CT) of the chest was performed with 75 mL Omnipaque 350 intravenous c ontrast. Automated exposure control and iterative reconstruction technique were employed. The dose-le ngth product (DLP) was 269.89 mGy-cm. COMPARISON: CT abdomen and pelvis 05/10/2021, 06/12/2018 FINDINGS: The lungs demonstrate mild atelectasis. There are tree-in-bud opacities in the lower lobes, likely inflammation/infection. No pleural effusion. The heart size is normal. There are coronary art radha calcifications. No pericardial effusion. There are changes of coronary artery bypass grafting. Ca lcified mediastinal lymph nodes are consistent with old granulomatous disease. There is a 1.9 x 2.0 c m mass in the head of the pancreas. There is a 1.6 cm cyst in left kidney. There is chronic sternal d ehiscence. There is mild thoracic spondylosis. IMPRESSION: 1. 2.0 cm mass in the head of the pancreas, new from 06/12/2018, which may be primary adenocarcinoma or neuroendocrine tumor. No evidence of metastatic disease. 2. Tree-in-bud opacities in the lower lobes, likely inflammation/infection. Reviewed, dictated and finalized at location A. IMPRESSION: 1. 2.0 cm mass in the head of the pancreas, new from 06/12/2018, which may be robert chaparro adenocarcinoma or neuroendocrine tumor. No evidence of metastatic disease. 2. Tree-in-bud opacities in the lower lobes, likely inflammation/infection.
--- NOTE | ~2021-05-10 | CT_ITS ---
EXAMINATION: CT abdomen pelvis w con EXAM DATE: 05/10/2021 10:24 INDICATION: Abd pain, r/o SBO. TECHNIQUE: Spiral CT of the abdomen and pelvis was performed following intravenous injection of 100 m L Omnipaque 350. Axial, coronal and sagittal images of the abdomen and pelvis were reviewed. The do se-length product (DLP) for this examination was 748.55 mGy-cm. The exposure was tailored according to patient size (auto mA exposure control), and iterative reconstruction (ASIR) was used as additiona l dose reduction technique. Comparison is made to prior examination from 06/12/2018. FINDINGS: Interval development of a 2.1 cm pancreatic head mass most consistent with primary pancreat ic carcinoma. The liver, spleen, adrenal glands are unremarkable. Gallbladder is unremarkable. No biliary obstruction. Portal and splenic veins are patent. Kidneys enhance symmetrically. There is no hydronephrosis. Mild enhancement of the urothelium at the renal pelvises bilaterally, mild nonspec ific perinephric and periureteric synovial fat stranding, similar appearance in 2019. Patient has li nancy had prostatectomy. The bladder is unremarkable. There is no retroperitoneal or pelvic lymphad enopathy. There is moderate scattered arteriosclerotic disease. The appendix is normal. The stomach and small bowel are unremarkable. There is expected amount of c olonic stool. No free intraperitoneal gas. The heart is normal in size. There are no pericardial or pleural effusions. Small basilar for postinfectious residua. There are no osteoblastic or osteo lytic lesions identified. IMPRESSION: 1. Pancreatic 2 cm mass most likely primary pancreatic cancer. 2. Nonspecific bilateral renal perinephric fat stranding. 3. Moderate sigmoid predominant diverticulosis. Reviewed, dictated and finalized at location B.
--- NOTE | 2021-05-10 09:02 | ED.ABDPAIN ---
HPI - Abdominal Pain General Chief Complaint: Abdominal Pain Stated Complaint: abd pain Time Seen by Provider: 05/10/21 08:49 History of Present Illness HPI narrative: 80-year-old male presents emergency room complaints of upper abdominal pain for 3 days. Patient states pain has been constant is a dull achy pain. Denies nausea or vomiting or diarrhea. Patient states that he had a bowel movement this morning describes it as a very small amount of stool. Patient has a history of cholecystectomy and prostatectomy. Related Data Home Medications Medication Instructions Recorded Confirmed pantoprazole 40 mg tablet,delayed 40 mg PO QAM 12/24/18 04/12/21 release tiotropium bromide 18 mcg capsule 1 cap INHALATION DAILY 12/24/18 04/12/21 with inhalation device cholecalciferol (vitamin D3) 25 1,000 unit PO DAILY 04/18/19 04/12/21 mcg (1,000 unit) capsule ezetimibe 10 mg tablet 10 mg PO DAILY 04/18/19 04/12/21 mecobalamin (vitamin B12) 1,000 1,000 mcg PO DAILY 04/18/19 04/12/21 mcg chewable tablet cyclosporine [Cequa] 2 drp EACH EYE BID 03/31/20 04/12/21 psyllium husk [Fiber (psyllium 0.4 g PO DAILY 03/31/20 04/12/21 husk)] ascorbic acid (vitamin C) 500 mg 500 mg PO DAILY 04/07/20 04/12/21 tablet aspirin 81 mg tablet,delayed 81 mg PO DAILY 04/07/20 04/12/21 release calcium carbonate 500 mg calcium 500 mg PO DAILY 04/07/20 04/12/21 (1,250 mg) tablet ferrous sulfate 325 mg (65 mg 325 mg PO BID 04/07/20 04/12/21 iron) tablet magnesium 250 mg tablet 500 mg PO DAILY tablet 04/07/20 04/12/21 aiuhdkre-abp-lhdfp acid 300 1 tablet PO DAILY 04/07/20 04/12/21 mcg-lycopene 600 mcg-lutein 300 mcg tablet pyridoxine (vitamin B6) 100 mg 100 mg PO DAILY 04/07/20 04/12/21 tablet atorvastatin [Lipitor] 40 mg PO DAILY 05/10/21 furosemide 05/10/21 Allergies Allergy/AdvReac Type Severity Reaction Status Date / Time hydrochlorothiazide Allergy Unknown low sodium Verified 04/12/21 14:03 niacin Allergy Unknown flashes Verified 04/12/21 14:03 Review of Systems Review of Systems: CONSTITUTIONAL: Denies fever, chills, or sweats. EYES: Denies visual changes, redness, or discharge. ENT: Denies rhinorrhea, congestion, sore throat, or otalgia. CARDIOVASCULAR: Denies chest pain, palpitations, or edema. RESPIRATORY: Denies cough or dyspnea. GASTROINTESTINAL: Reports abdominal pain. Denies nausea, vomiting, or diarrhea. GENITOURINARY: Denies dysuria or hematuria. SKIN: Denies rash or itching. MUSCULOSKELETAL: Denies back pain, joint pain, or myalgia. NEUROLOGIC: Denies headache, numbness, dizziness, or weakness. PSYCHIATRIC: Denies anxiety or depression. [facility] Past Medical History Medical History Anemia in chronic kidney disease CAD (coronary artery disease) [facility] 2011 3v disease Carotid stenosis 2-21 65% Needs yearly dopplers Carpal tunnel syndrome of right wrist Cataract fragments in both eyes following surgery CKD (chronic kidney disease) Sees Dr Hogan COPD (chronic obstructive pulmonary disease) PFT showing mild obstruction 2014 CVA (cerebral vascular accident) MRI 2018 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 Diastolic CHF EF 69%, Grade 1 DD Echo 01/2019 Diverticulosis Dyslipidemia Dysphagia 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
[2021-05-10 09:20] LABS: Basophils Percent Auto 0.1 % (0.2-1.2); Eosinophils Absolute Auto 0.1 K/mm3 (0-0.3); Eosinophils Percent Auto 0.8 % (0-4.4); Hematocrit 38.6 % (42.0-52.0); Hemoglobin 12.6 g/dL (14.0-18.0); Immature Granulocyte Absolute 0.07 K/mm3 (0.00-0.031); Immature Granulocyte Percent A 0.7 % (0-0.5); Lymphocytes Absolute Auto 1.48 K/mm3 (0.9-3.2); Mean Corpuscular HGB Conc 32.6 g/dl (32-36); Mean Corpuscular Volume 95.1 fl (80-100); Mean Platelet Volume 11.7 fl (7.4-10.4); Monocytes Absolute Auto 0.9 K/mm3 (0.1-0.6); Monocytes Percent Auto 8.8 % (2.6-8.5); Neutrophils Percent Auto 75.6 % (45.5-73.1); Platelet Count Result 157 k/mm3 (150-375); Red Blood Count 4.06 M/mm3 (4.6-6.20); White Blood Count 10.6 K/mm3 (4.5-10.0)
[2021-05-10] MEDS: SODIUM CHLORIDE 0.9% IV 1,000 ML 150 ML IV CONT (09:20)
[2021-05-10] MEDS: hydrALAZINE HCL 20 MG/ML VIAL 10 MG IV PUSH (09:20)
[2021-05-10 09:29] LABS: Alanine Aminotransferase 46 U/L (4-50); Albumin Level 3.9 g/dL (3.5-5.1); Alkaline Phosphatase 75 U/L (38-126); Anion Gap 7 mmol/L (8-16); Aspartate Amino Transferase 47 U/L (17-59); Bilirubin,Total 0.6 mg/dL (0.2-1.3); Blood Urea Nitrogen 43 mg/dL (9-20); Calcium 8.5 mg/dL (8.4-10.2); Carbon Dioxide 27 mmol/L (22-30); Chloride 105 mmol/L (98-107); Estimated CRCL calculation 40 ml/min; Estimated Glomerular Filt Rate 58; Glucose 104 mg/dL (65-110); Lipase 51 U/L (23-300); Sodium 139 mmol/L (137-145)
[2021-05-10 09:40] LABS: Troponin I 0.017 ng/mL (0.000-0.034)
--- NOTE | 2021-05-10 09:47 | PC.NURSE ---
Patient states he is unable to urinate at this time.
[2021-05-10 10:09] LABS: Appearance Urine Clear (Clear); Bilirubin Urine Negative (Negative); Blood Urine Negative (Negative); Color Urine Yellow (Yellow); Glucose Urine UA Negative (Negative); Ketones Urine Negative (Negative); Leukocyte Esterase Ur Negative LEU/UL (Negative); Nitrate Urine Negative (Negative); Protein Urine 2+ mg/dL (Negative); Urobilinogen Urine 0.2 mg/dL (<2.0)
[2021-05-10 10:25] LABS: Add Urine Microscopic? YES; RBC Urine 0-2 /hpf (0-2)
[2021-05-10 10:26] LABS: WBC Urine 0-3 /hpf
--- NOTE | 2021-05-10 11:09 | PC.NURSE ---
Care assumed of pt at this time.
--- NOTE | 2021-05-10 12:19 | PC.NURSE ---
Pt requesting transfer to [facility] for further treatment and evaluation. [employer] Stepan made aware.
[2021-05-10 13:52] LABS: SARS-CoV-2 RNA PCR Negative
== END 2021-05-10 13:53 | disposition home or self-care (01) ==
PROVIDERS: Emergency Provider Nurse Practitioner Family; PCP Family Medicine
DX: R10.12 Left upper quadrant pain (principal); Z20.822 Contact with and (suspected) exposure to COVID-19; I25.10 Atherosclerotic heart disease of native coronary artery without angina pectoris; J44.9 Chronic obstructive pulmonary disease, unspecified; N18.9 Chronic kidney disease, unspecified; I50.30 Unspecified diastolic (congestive) heart failure; E78.5 Hyperlipidemia, unspecified; D63.1 Anemia in chronic kidney disease; G47.33 Obstructive sleep apnea (adult) (pediatric); Z86.73 Personal history of transient ischemic attack (TIA), and cerebral infarction without residual deficits; Z86.718 Personal history of other venous thrombosis and embolism; Z86.711 Personal history of pulmonary embolism; Z85.46 Personal history of malignant neoplasm of prostate; Z90.79 Acquired absence of other genital organ(s); Z95.1 Presence of aortocoronary bypass graft; Z98.49 Cataract extraction status, unspecified eye; Z79.82 Long term (current) use of aspirin; F17.210 Nicotine dependence, cigarettes, uncomplicated; R91.8 Other nonspecific abnormal finding of lung field; K57.30 Diverticulosis of large intestine without perforation or abscess without bleeding; K86.9 Disease of pancreas, unspecified
CPT/HCPCS: 36415; 71260; 74177; 80053; 81001; 83690; 84484; 85025; 96361; 96374; 99284; C9803; J0360; J7030; Q9967; U0003; U0005

== ENCOUNTER → 2021-05-17 14:02 | Outpatient (CLI) | payer MEDICARE, OTHER, SELFPAY ==
--- NOTE | ~2021-05-17 | XR_ITS ---
EXAMINATION: XR finger 2nd RT min 2V DATE: 05/17/2021 14:24 INDICATION: Right hand second digit pain and injury and swelling. TECHNIQUE: 4 views of right hand second digit were obtained. COMPARISON: None. FINDINGS: There is hyperextension of second proximal interphalangeal joint and flexion of second dist al interphalangeal joint (swan-neck deformity). There is dorsal tilt of lunate, consistent with dorsa l intercalated segmental instability. No fracture. There is severe osteoarthritis of second distal in terphalangeal joint and mild osteoarthritis of second proximal interphalangeal joint. There is severe osteoarthritis of first interphalangeal joint and third distal interphalangeal joint. IMPRESSION: 1. Polyarticular osteoarthritis. 2. Dorsal intercalated segmental instability pattern. Reviewed, dictated and finalized at location A.
== END ==
PROVIDERS: PCP Family Medicine; Visit Provider Family Medicine
DX: M19.041 Primary osteoarthritis, right hand (principal)
CPT/HCPCS: 73140

== ENCOUNTER 2021-06-28 16:46 | Outpatient (CLI) | payer MEDICARE, OTHER, SELFPAY ==
--- NOTE | ~2021-06-28 | US_ITS ---
EXAMINATION: US carotid duplex BI DATE: 06/28/2021 17:58 INDICATION: Carotid artery stenosis and occlusion. TECHNIQUE: Grayscale, color Doppler, and pulsed Doppler images of the cervical carotid arteries were obtained. The degree of vessel stenosis is placed in one of the following categories: normal, <50%, 5 0-69%, >=70% but less than near-occlusion, near-occlusion, or total occlusion. Note that percent sten osis relative to normal distal artery lumen diameter is indirectly measured from velocity measurement s as described by Beltran, et al. Radiology 2003; [id number]:340-346. COMPARISON: None. FINDINGS: RIGHT: The right common carotid artery (CCA) peak systolic velocity (PSV) is 150 cm/s. The right internal ca rotid artery (ICA) PSV is 114 cm/s. The right ICA end-diastolic velocity (EDV) is 20 cm/s. The right ICA/CCA PSV ratio is 0.8. Grayscale and color Doppler images yield an estimate of <50% diameter reduc tion from plaque in the ICA. The external carotid artery (ECA) PSV is 191 cm/s. There is antegrade fl ow in the right vertebral artery. LEFT: The left CCA PSV is 147 cm/s. The left ICA PSV is 336 cm/s. The left ICA EDV is 38 cm/s. The left ICA /CCA PSV ratio is 2.3. Grayscale and color Doppler images yield an estimate of >=70% (but less than n ear occlusion) diameter reduction from plaque in the ICA. The ECA PSV is 253 cm/s. There is antegrade flow in the left vertebral artery. IMPRESSION: 1. <50% stenosis in the right internal carotid artery. 2. >=70% (but less than near occlusion) stenosis in the left internal carotid artery. Reviewed, dictated and finalized at location A. IMPRESSION: 1. <50% stenosis in the right internal carotid artery. 2. >=70% (but less than near occlusion) stenosis in the left internal carotid a rtery.
== END 2021-06-28 16:47 | disposition home or self-care (01) ==
PROVIDERS: PCP Family Medicine; Visit Provider Family Medicine
DX: I65.23 Occlusion and stenosis of bilateral carotid arteries (principal)
CPT/HCPCS: 93880

== ENCOUNTER 2022-04-16 12:26 | Emergency (ER) | payer MEDICARE, OTHER, SELFPAY ==
--- NOTE | ~2022-04-16 | CT_ITS ---
EXAMINATION: CT cervical spine wo con DATE: 04/16/2022 13:16 INDICATION: Head injury. TECHNIQUE: Computed tomography (CT) of the cervical spine was performed without intravenous contrast. Automated exposure control and iterative reconstruction technique were employed. The dose-length pro duct was 418.78 mGy-cm. COMPARISON: CT cervical spine 09/05/2017 FINDINGS: There is 3 degrees levocurvature of cervical spine. There is 2 mm anterolisthesis of C4 on C5. There is mild chronic height loss of C4 vertebral body. There is mildly decreased disc height at C4-C5 and severely decreased disc height at C5-C6 and C6-C7. The following disc levels are specifical ly discussed: C2-C3: There is mild bilateral uncovertebral joint osteoarthritis. There is mild right and severe lef t facet joint osteoarthritis. There is mild left neural foraminal stenosis. There is no central canal stenosis. C3-C4: There is mild left uncovertebral joint osteoarthritis. There is mild right and moderate left f acet joint osteoarthritis. There is no neural foraminal stenosis. There is no central canal stenosis. C4-C5: There is severe right and mild left uncovertebral joint osteoarthritis. There is severe bilate ral facet joint osteoarthritis. There is mild right neural foraminal stenosis. There is mild central canal stenosis. C5-C6: There is severe right and mild left uncovertebral joint osteoarthritis. There is severe right and moderate left facet joint osteoarthritis. There is mild right neural foraminal stenosis. There is mild central canal stenosis. C6-C7: There is severe bilateral uncovertebral joint osteoarthritis. There is moderate right and sridhar re left facet joint osteoarthritis. There is mild bilateral neural foraminal stenosis. There is mild central canal stenosis. C7-T1: There is no uncovertebral joint osteoarthritis. There is severe right and mild left facet join t osteoarthritis. There is no neural foraminal stenosis. There is no central canal stenosis. IMPRESSION: 1. No fracture. 2. Severe cervical spondylosis. Reviewed, dictated and finalized at location A. VASC TECH
--- NOTE | ~2022-04-16 | CT_ITS ---
EXAMINATION: CT brain wo con DATE: 04/16/2022 13:16 INDICATION: Head injury. TECHNIQUE: Computed tomography (CT) of the head was performed without intravenous contrast. The mA wa s adjusted according to patient size. Iterative reconstruction technique was employed. The dose-lengt h product was 605.33 mGy-cm. COMPARISON: Head CT 710 FINDINGS: There are scattered areas of low attenuation in the cerebral white matter. There is an old infarct in left cerebellum. There is no intracranial hemorrhage, acute infarction, or abnormal intrac ranial mass lesion. The ventricles are normal in size. There is posterior scalp soft tissue swelling. There is an old blowout fracture of medial wall of right orbit. There are likely changes of ocular l ens replacement surgeries. There is mild mucosal thickening in the paranasal sinuses. The mastoid air cells are normal. IMPRESSION: 1. Old infarct in left cerebellum. 2. Mild nonspecific cerebral white matter disease, which likely represents chronic small vessel ische lance disease. Reviewed, dictated and finalized at location A. NURSE IMPRESSION: 1. Old infarct in left cerebellum. 2. Mild nonspecific cerebral white matter disease, which likely represents director microbiology ezequiel small vessel ischemic disease.
[2022-04-16 12:27] VITALS: BP 179/50; PULSE 64; RESP 18; TEMP 36.9; O2SAT 96
--- NOTE | 2022-04-16 12:41 | ED.FALL ---
HPI - Fall General Chief Complaint: Fall Stated Complaint: fall - hit head Time Seen by Provider: 04/16/22 12:27 Source: patient, family and EMS Mode of arrival: EMS History of Present Illness HPI Narrative: Patient is 81 years old white male lost his balance and fell backward at home, struck the back of his head, no loss of consciousness or any other injuries. History of right shoulder rotator cuff injury with chronic pain, today is not different than before. He denies any neck pain, back pain or extremity pain. Patient supposed to use his walker, but he was using his cane at that time, last fall secondary to loss of balance was 4 to 6 weeks ago, patient went to [facility] ED at that time. Patient on Eliquis. He denies any fever, chills, nausea, vomiting, chest pain, shortness of breath or back pain. He requested some pain medicine for his right shoulder. Related Data Home Medications Medication Instructions Recorded Confirmed cholecalciferol (vitamin D3) 25 1,000 unit PO DAILY 04/18/19 02/17/22 mcg (1,000 unit) capsule ezetimibe 10 mg tablet 10 mg PO DAILY 04/18/19 02/17/22 cyclosporine 0.09 % eye drops in a 2 drp EACH EYE BID 03/31/20 02/17/22 dropperette (Cequa) aspirin 81 mg tablet,delayed 81 mg PO DAILY 04/07/20 02/17/22 release magnesium 250 mg tablet 500 mg PO DAILY 04/07/20 02/17/22 valsartan 160 mg tablet 160 mg PO DAILY 10/18/21 02/17/22 isosorbide dinitrate 20 mg tablet 20 mg PO DAILY 11/09/21 02/17/22 qldov-8j-zjy-epa-fish oil 120 cap PO DAILY 11/09/21 02/17/22 mg-180 mg-60 mg-1,200 mg capsule, DR (Fish Oil) cyclobenzaprine 5 mg tablet 5 mg PO TID PRN 11/18/21 02/17/22 hydrocodone 5 mg-acetaminophen 325 1 tablet PO Q6H PRN 11/18/21 02/17/22 mg tablet umeclidinium 62.5 mcg-vilanterol 1 inh inhalation DAILY PRN 02/17/22 02/17/22 25 mcg/actuation powdr for inhalation (Anoro Ellipta) Allergies Allergy/AdvReac Type Severity Reaction Status Date / Time hydrochlorothiazide Allergy Unknown low sodium Verified 04/16/22 12:38 niacin Allergy Unknown flashes Verified 04/16/22 12:38 Review of Systems Review of Systems: All systems reviewed & are unremarkable except as noted in HPI and below PMFSH Past Medical History Medical History Anemia in chronic kidney disease CAD (coronary artery disease) [facility] 2011 3v disease Carotid stenosis 2-21 65% Needs yearly dopplers 5- Left caortid > 70% blocked Carpal tunnel syndrome of right wrist Cataract fragments in both eyes following surgery CKD (chronic kidney disease) Sees Dr Hogan COPD (chronic obstructive pulmonary disease) PFT showing mild obstruction 2014 CVA (cerebral vascular accident) MRI 2018 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 Diastolic CHF EF 69%, Grade 1 DD Echo 01/2019 Diverticulosis Dyslipidemia Dysphagia 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pinal stenosis TIA (transient ischemic attack) 2019 on eliquis Tubular adenoma of colon by colo April 2019 Surgical History Surgical History History of carpal tunnel release right in 2018 History of prostate surgery Hx of CABG 4v in 01/2012 at [place] Hx of cataract surgery Hx of cholecystectomy 2001 Family History Family History Sibling Family history of cardiovascular disease, Onset Age: 80 Father Family history of sudden , Onset Age: 43 Sibling Pulmonary fibrosis Sibling STEMI (ST elevation myocardial infarction) Mother Parkinson disease Other Malignant neoplasm of prostate
[2022-04-16] MEDS: HYDROcodone/acetaminophen (*CRX) 5-325 MG TABLET 1 TAB PO (12:53)
[2022-04-16 14:04] VITALS: BP 177/56; PULSE 63; RESP 18; O2SAT 97
== END 2022-04-16 14:07 | disposition home or self-care (01) ==
PROVIDERS: Emergency Provider Emergency Medicine; PCP Family Medicine
DX: S06.0X0A Concussion without loss of consciousness, initial encounter (principal); M47.812 Spondylosis without myelopathy or radiculopathy, cervical region; R90.82 White matter disease, unspecified; Z87.891 Personal history of nicotine dependence; D64.9 Anemia, unspecified; I25.10 Atherosclerotic heart disease of native coronary artery without angina pectoris; N18.9 Chronic kidney disease, unspecified; J44.9 Chronic obstructive pulmonary disease, unspecified; Z86.73 Personal history of transient ischemic attack (TIA), and cerebral infarction without residual deficits; I50.9 Heart failure, unspecified; E78.5 Hyperlipidemia, unspecified; G47.30 Sleep apnea, unspecified; W19.XXXA Unspecified fall, initial encounter
CPT/HCPCS: 70450; 72125; 99284; 99285; A9270

== ENCOUNTER 2022-05-18 15:20 | Outpatient (CLI) | payer MEDICARE, OTHER, SELFPAY ==
[2022-05-18 15:41] LABS: Hematocrit 34.3 % (42.0-52.0); Hemoglobin 10.6 g/dL (14.0-18.0); Mean Corpuscular HGB Conc 30.9 g/dl (32-36); Mean Corpuscular Hemoglobin 30.5 pg (26-34); Mean Corpuscular Volume 98.6 fl (80-100); Mean Platelet Volume 11.7 fl (7.4-10.4); Platelet Count Result 164 k/mm3 (150-375); Red Blood Count 3.48 M/mm3 (4.6-6.20); Red Cell Distribution Width 13.4 % (11.5-14.5); White Blood Count 7.3 K/mm3 (4.5-10.0)
[2022-05-18 15:49] LABS: Albumin Level 4.2 g/dL (3.5-5.1); Anion Gap 8 mmol/L (8-16); Blood Urea Nitrogen 42 mg/dL (9-20); Calcium 8.5 mg/dL (8.4-10.2); Carbon Dioxide 25 mmol/L (22-30); Chloride 105 mmol/L (98-107); Estimated Glomerular Filt Rate 41; Glucose 116 mg/dL (65-110); Phosphorus 4.9 mg/dL (2.5-4.5); Sodium 138 mmol/L (137-145)
[2022-05-18 16:01] LABS: Parathyroid Intact 241.5 pg/mL (7.5-53.5)
[2022-05-18 16:20] LABS: Creatinine Urine 62.8 mg/dL; Total Protein Urine Random 24 mg/dL; Ur Ttl Prot Creatinine Ratio 0.38 mg/mg (0-0.20)
[2022-05-18 17:50] LABS: Vitamin D 25 Hydroxy 43.5 ng/mL
== END 2022-05-18 15:21 | disposition home or self-care (01) ==
PROVIDERS: PCP Family Medicine; Visit Provider Internal Medicine Nephrology
DX: J18.9 Pneumonia, unspecified organism (principal); N18.32 Chronic kidney disease, stage 3b; E21.1 Secondary hyperparathyroidism, not elsewhere classified
CPT/HCPCS: 36415; 80069; 82306; 82570; 83970; 84156; 85027

== ENCOUNTER 2022-06-13 15:45 | Emergency (ER) | payer MEDICARE, OTHER, SELFPAY ==
[2022-06-13] VITALS (17 sets, daily range): BP systolic 145–182; BP diastolic 42–55; PULSE 58–62; RESP 14–16; TEMP 36.3–36.6; O2SAT 94–98
--- NOTE | ~2022-06-13 | CT_ITS ---
EXAMINATION: CT brain wo con DATE: 06/13/2022 16:20 INDICATION: Head injury. TECHNIQUE: Computed tomography (CT) of the head was performed without intravenous contrast. The mA wa s adjusted according to patient size. Iterative reconstruction technique was employed. The dose-lengt h product was 605.33 mGy-cm. COMPARISON: Head CT 04/16/2022 FINDINGS: There is an old infarct in left cerebellum. There are scattered areas of low attenuation in the cerebral white matter. There is no intracranial hemorrhage, acute infarction, or abnormal intrac ranial mass lesion. The ventricles are normal in size. There is posterior scalp soft tissue swelling. There are old fractures of medial wall of right orbit and the mcwilliams of the right maxillary sinus. Th ere are likely changes of ocular lens replacement surgeries. The mastoid air cells are normal. IMPRESSION: 1. Old infarct in the left cerebellum. 2. Stable mild nonspecific cerebral white matter disease, which likely represents chronic small vesse l ischemic disease. Reviewed, dictated and finalized at location A. IMPRESSION: 1. Old infarct in the left cerebellum. 2. Stable mild nonspecific cerebral white matter disease, which likely represen ts chronic small vessel ischemic disease.
--- NOTE | ~2022-06-13 | CT_ITS ---
EXAMINATION: CT cervical spine wo con DATE: 06/13/2022 16:21 INDICATION: fall, head injury, taking blood thinners TECHNIQUE: Computed tomography (CT) of the cervical spine was performed without intravenous contrast. Automated exposure control and iterative reconstruction technique were employed. The dose-length pro duct was 320.40 mGy-cm. COMPARISON: 04/16/2022. FINDINGS: Vertebral Body Alignment: Intact. Stable grade 1 anterolisthesis at C4-5. Craniocervical and atlantoaxial alignment: Moderate degenerative change. Alignment intact. Osseous structures/fracture: No evidence of a lytic or blastic process in the visualized spine. No e vidence of acute fracture. . Cervical soft tissues: The paraspinal soft tissues planes are maintained. Degenerative changes: Degenerative changes, without severe neural foraminal or central canal narrowin g. IMPRESSION: No acute fracture or traumatic malalignment in the cervical spine. Reviewed, dictated and finalized at location K.
--- NOTE | 2022-06-13 18:58 | ED.FALL ---
HPI - Fall General Chief Complaint: Fall Stated Complaint: fall Time Seen by Provider: 06/13/22 17:22 History of Present Illness HPI Narrative: Patient is an 82-year-old male presenting after a fall. Patient states that he was taking his walker out of his car when he suddenly lost his balance and he fell back striking his head. He did not lose consciousness. States that he had a bit of a headache following this but it has since resolved. He denies neck or back pain. No vision changes. No nausea or vomiting. Denies further injuries or complaints. States that he does take Eliquis. Related Data Home Medications Medication Instructions Recorded Confirmed cholecalciferol (vitamin D3) 25 1,000 unit PO DAILY 04/18/19 05/24/22 mcg (1,000 unit) capsule ezetimibe 10 mg tablet 10 mg PO DAILY 04/18/19 05/24/22 cyclosporine 0.09 % eye drops in a 2 drp EACH EYE BID 03/31/20 05/24/22 dropperette (Cequa) aspirin 81 mg tablet,delayed 81 mg PO DAILY 04/07/20 05/24/22 release magnesium 250 mg tablet 500 mg PO DAILY 04/07/20 05/24/22 valsartan 160 mg tablet 160 mg PO DAILY 10/18/21 05/24/22 isosorbide dinitrate 20 mg tablet 20 mg PO DAILY 11/09/21 05/24/22 dsauu-8o-vzk-epa-fish oil 120 cap PO DAILY 11/09/21 05/24/22 mg-180 mg-60 mg-1,200 mg capsule, DR (Fish Oil) cyclobenzaprine 5 mg tablet 5 mg PO TID PRN 11/18/21 05/24/22 hydrocodone 5 mg-acetaminophen 325 1 tablet PO Q6H PRN 11/18/21 05/24/22 mg tablet umeclidinium 62.5 mcg-vilanterol 1 inh inhalation DAILY PRN 02/17/22 05/24/22 25 mcg/actuation powdr for inhalation (Anoro Ellipta) calcium carbonate 200 mg calcium 200 mg PO TID 05/24/22 05/24/22 (500 mg) chewable tablet (Tums) Allergies Allergy/AdvReac Type Severity Reaction Status Date / Time hydrochlorothiazide Allergy Unknown low sodium Verified 04/16/22 12:38 niacin Allergy Unknown flashes Verified 04/16/22 12:38 Review of Systems Review of Systems: All systems reviewed & are unremarkable except as noted in HPI and below PMFSH Past Medical History Medical History Anemia in chronic kidney disease CAD (coronary artery disease) [facility] 2011 3v disease Carotid stenosis 2-21 65% Needs yearly dopplers 5-22 Left caortid > 70% blocked Carpal tunnel syndrome of right wrist Cataract fragments in both eyes following surgery CKD (chronic kidney disease) Sees Dr Hogan COPD (chronic obstructive pulmonary disease) PFT showing mild obstruction 2014 CVA (cerebral vascular accident) MRI 2018 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 Diastolic CHF EF 69%, Grade 1 DD Echo 01/2019 Diverticulosis Dyslipidemia Dysphagia 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pinal stenosis TIA (transient ischemic attack) 2019 on eliquis Tubular adenoma of colon by colo April 2019 Surgical History Surgical History History of carpal tunnel release right in 2018 History of prostate surgery Hx of CABG 4v in 01/2012 at [place] Hx of cataract surgery Hx of cholecystectomy 2001 Family History Family History Sibling Family history of cardiovascular disease, Onset Age: 80 Father Family history of sudden , Onset Age: 43 Sibling Pulmonary fibrosis Sibling STEMI (ST elevation myocardial infarction) Mother Parkinson disease Other Malignant neoplasm of prostate Social History Social History Social History: Patient quit smoking in the 1980s. Denies alcohol or drug u
== END 2022-06-13 19:35 | disposition home or self-care (01) ==
PROVIDERS: Emergency Provider Emergency Medicine
DX: S00.03XA Contusion of scalp, initial encounter (principal); N18.9 Chronic kidney disease, unspecified; I65.22 Occlusion and stenosis of left carotid artery; J44.9 Chronic obstructive pulmonary disease, unspecified; I50.30 Unspecified diastolic (congestive) heart failure; E78.5 Hyperlipidemia, unspecified; G47.33 Obstructive sleep apnea (adult) (pediatric); Z86.73 Personal history of transient ischemic attack (TIA), and cerebral infarction without residual deficits; Z86.718 Personal history of other venous thrombosis and embolism; Z86.711 Personal history of pulmonary embolism; Z85.46 Personal history of malignant neoplasm of prostate; Z87.891 Personal history of nicotine dependence; Z90.79 Acquired absence of other genital organ(s); Z90.49 Acquired absence of other specified parts of digestive tract; Z98.49 Cataract extraction status, unspecified eye; Z95.1 Presence of aortocoronary bypass graft; Z79.82 Long term (current) use of aspirin; R90.82 White matter disease, unspecified; W18.39XA Other fall on same level, initial encounter
CPT/HCPCS: 70450; 72125; 99284

== ENCOUNTER → 2022-08-11 10:53 | Outpatient (CLI) | payer MEDICARE, OTHER, SELFPAY ==
--- NOTE | ~2022-08-11 | MR_ITS ---
MRI of the lumbar spine Clinical History: Radiculopathy Technique: Axial T2-weighted images, and sagittal T1-weighted, T2-weighted, and and T2 fat-sat images were acquired. COMPARISON: 07/10/2020 Findings: No acute fracture seen. 4 mm retrolisthesis of L3 over L4 is present. No suspicious bone ma rrow signal abnormality seen. At L1-L2, there is no disc bulge or herniation. There is moderate facet arthropathy. No spinal canal stenosis or neural foraminal narrowing. At L2-L3, there is minimal disc bulge with moderate facet arthropathy. No central canal stenosis. The re is mild bilateral neural foraminal narrowing. At L3-L4, there is severe degenerative disc narrowing. There is minimal disc bulge with severe facet arthropathy. There is right lateral recess stenosis. There is severe right neural foraminal narrowing and moderate to severe left neural foraminal narrowing. At L4-L5, there is severe degenerative disc narrowing with diffuse disc bulge and severe facet arthro rebecca. Probable prior L4 laminectomy. No central canal stenosis. There is severe bilateral neural for aminal narrowing, right worse than left. At L5-S1, there is diffuse disc bulge and severe facet arthropathy. There is severe left neural farideh inal narrowing, moderate right neural foraminal narrowing. No hamzah central canal stenosis. Paravertebral soft tissues are unremarkable. Impression: Advanced degenerative spondylosis at L3-L4, L4-L5, and L5-S1, as detailed above. Probable L4 laminectomy since prior exam. 4 mm retrolisthesis of L3 over L4. Reviewed, dictated and finalized at [facility]. Impression: Advanced degenerative spondylosis at L3-L4, L4-L5, and L5-S1, as detailed above . Probable L4 laminectomy since prior exam. 4 mm retrolisthesis of L3 over L4.
== END ==
PROVIDERS: PCP Family Medicine; Visit Provider Anesthesiology Pain Medicine
DX: M47.817 Spondylosis without myelopathy or radiculopathy, lumbosacral region (principal); M43.16 Spondylolisthesis, lumbar region
CPT/HCPCS: 72148

== ENCOUNTER 2022-08-12 18:04 | Emergency (ER) | payer MEDICARE, OTHER, SELFPAY ==
--- NOTE | ~2022-08-12 | CT_ITS ---
EXAMINATION: CT brain wo con DATE: 08/12/2022 19:29 INDICATION: Fall with head injury TECHNIQUE: Computed tomography (CT) of the head was performed without intravenous contrast. Sagittal and coronal reconstructions were performed. The mA was adjusted according to patient size. Iterative reconstruction technique was employed. The dose-length product was 605.33 mGy-cm. COMPARISON: head CT dated 06/13/2022 FINDINGS: Unchanged small region of likely scarring along the posterior midline scalp. Again seen is a chronic fracture along the medial wall of the right orbit. No acute fracture. No acute intracranial hemorrhag e, acute infarction or abnormal extra axial fluid collection. Again seen is a small old infarct in th e left cerebellar hemisphere. There is mild scattered white matter hypoattenuation consistent with ch ronic small vessel ischemic disease. Ventricles are normal and symmetric. No mass/mass effect. Change s of bilateral intraocular lens replacement. The mastoid air cells are normal. Intracranial calcified cerebral atherosclerosis is noted. IMPRESSION: 1. No acute fracture or acute intracranial process. 2. 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 3. Stable appearance of nonspecific mild scattered white matter hypoattenuation consistent with chron ic small vessel ischemic disease. Reviewed, dictated and finalized at [facility]. IMPRESSION: 1. No acute fracture or acute intracranial process. 2. 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 3. Stable appearance of nonspecific mild scattered white matter hypoattenuation consistent with chronic small vessel ischemic disease.
[2022-08-12 18:14] VITALS: BP 155/42; PULSE 51; RESP 17; TEMP 36.5; O2SAT 97
--- NOTE | 2022-08-12 20:39 | ED.HEATRA ---
HPI - Head Injury General Chief complaint: Head Injury Stated complaint: fall hitting back of head on blood thinners No LOC Time Seen by Provider: 08/12/22 20:12 History of Present Illness HPI Narrative: Patient is an 82-year-old male presenting after a fall. Patient states that he dropped something on the floor so he bent down to try to pick it up. When he tried to sit back in his chair the chair slipped out from under him causing him to fall backwards striking his head. No loss of consciousness. No neck or back pain. Patient then developed a mild headache which he mentioned to his who made him come in for evaluation. Currently, he denies complaints. States that his headache is resolved. No chest pain, shortness of breath, vomiting or nausea, vision changes. Related Data Home Medications Medication Instructions Recorded Confirmed cholecalciferol (vitamin D3) 25 1,000 unit PO DAILY 04/18/19 05/24/22 mcg (1,000 unit) capsule ezetimibe 10 mg tablet 10 mg PO DAILY 04/18/19 05/24/22 cyclosporine 0.09 % eye drops in a 2 drp EACH EYE BID 03/31/20 05/24/22 dropperette (Cequa) aspirin 81 mg tablet,delayed 81 mg PO DAILY 04/07/20 05/24/22 release magnesium 250 mg tablet 500 mg PO DAILY 04/07/20 05/24/22 valsartan 160 mg tablet 160 mg PO DAILY 10/18/21 05/24/22 isosorbide dinitrate 20 mg tablet 20 mg PO DAILY 11/09/21 05/24/22 aizhr-9x-oer-epa-fish oil 120 cap PO DAILY 11/09/21 05/24/22 mg-180 mg-60 mg-1,200 mg capsule, DR (Fish Oil) cyclobenzaprine 5 mg tablet 5 mg PO TID PRN 11/18/21 05/24/22 hydrocodone 5 mg-acetaminophen 325 1 tablet PO Q6H PRN 11/18/21 05/24/22 mg tablet umeclidinium 62.5 mcg-vilanterol 1 inh inhalation DAILY PRN 02/17/22 05/24/22 25 mcg/actuation powdr for inhalation (Anoro Ellipta) calcium carbonate 200 mg calcium 200 mg PO TID 05/24/22 05/24/22 (500 mg) chewable tablet (Tums) Allergies Allergy/AdvReac Type Severity Reaction Status Date / Time hydrochlorothiazide Allergy Unknown low sodium Verified 08/12/22 18:05 niacin Allergy Unknown flashes Verified 08/12/22 18:05 Review of Systems Review of Systems: All systems reviewed & are unremarkable except as noted in HPI and below PMFSH Past Medical History Medical History Anemia in chronic kidney disease CAD (coronary artery disease) [facility] 2011 3v disease Carotid stenosis 2-21 65% Needs yearly dopplers - Left caortid > 70% blocked Carpal tunnel syndrome of right wrist Cataract fragments in both eyes following surgery CKD (chronic kidney disease) Sees Dr Hogan COPD (chronic obstructive pulmonary disease) PFT showing mild obstruction 2014 CVA (cerebral vascular accident) MRI 2018 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 Diastolic CHF EF 69%, Grade 1 DD Echo 01/2019 Diverticulosis Dyslipidemia Dysphagia 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pinal stenosis TIA (transient ischemic attack) 2019 on eliquis Tubular adenoma of colon by colo April 2019 Surgical History Surgical History History of carpal tunnel release right in 2018 History of prostate surgery Hx of CABG 4v in 01/2012 at [place] Hx of cataract surgery Hx of cholecystectomy 2001 Family History Family History Sibling Family history of cardiovascular disease, Onset Age: 80 Father Family history of sudden , Onset Age: 43 Sibling Pulmonary fibrosis Sibling STEMI (ST elevation myocardial infarction) Mother Parkinson disease Other Malignant
== END 2022-08-12 21:05 | disposition home or self-care (01) ==
LOC: ANHED 20:56
PROVIDERS: Emergency Provider Emergency Medicine; PCP Family Medicine
DX: S09.90XA Unspecified injury of head, initial encounter (principal); N18.9 Chronic kidney disease, unspecified; D63.1 Anemia in chronic kidney disease; I25.10 Atherosclerotic heart disease of native coronary artery without angina pectoris; J44.9 Chronic obstructive pulmonary disease, unspecified; I50.30 Unspecified diastolic (congestive) heart failure; G47.33 Obstructive sleep apnea (adult) (pediatric); E78.5 Hyperlipidemia, unspecified; Z95.1 Presence of aortocoronary bypass graft; Z86.73 Personal history of transient ischemic attack (TIA), and cerebral infarction without residual deficits; Z86.718 Personal history of other venous thrombosis and embolism; Z86.711 Personal history of pulmonary embolism; Z85.46 Personal history of malignant neoplasm of prostate; Z87.891 Personal history of nicotine dependence; Z90.79 Acquired absence of other genital organ(s); Z90.49 Acquired absence of other specified parts of digestive tract; Z98.49 Cataract extraction status, unspecified eye; Z79.82 Long term (current) use of aspirin; W07.XXXA Fall from chair, initial encounter
CPT/HCPCS: 70450; 99284

== ENCOUNTER 2022-09-18 08:31 | Outpatient (CLI) | payer MEDICARE, OTHER, SELFPAY ==
[2022-09-18 08:45] LABS: Basophils Percent Auto 0.2 % (0.2-1.2); Eosinophils Absolute Auto 0.1 K/mm3 (0-0.3); Eosinophils Percent Auto 1.4 % (0-4.4); Hemoglobin 10.4 g/dL (14.0-18.0); Immature Granulocyte Absolute 0.02 K/mm3 (0.00-0.031); Immature Granulocyte Percent A 0.4 % (0-0.5); Lymphocytes Absolute Auto 1.24 K/mm3 (0.9-3.2); Lymphocytes Percent Auto 21.7 % (18.3-44.2); Mean Corpuscular HGB Conc 32.5 g/dl (32-36); Mean Corpuscular Hemoglobin 31.1 pg (26-34); Mean Corpuscular Volume 95.8 fl (80-100); Mean Platelet Volume 10.2 fl (7.4-10.4); Monocytes Absolute Auto 0.3 K/mm3 (0.1-0.6); Monocytes Percent Auto 5.3 % (2.6-8.5); Neutrophils Absolute Auto 4.1 K/mm3 (1.3-6.7); Platelet Count Result 144 k/mm3 (150-375); Red Blood Count 3.34 M/mm3 (4.6-6.20); Red Cell Distribution Width 14.2 % (11.5-14.5); White Blood Count 5.7 K/mm3 (4.5-10.0)
[2022-09-18 08:50] LABS: Blood Urea Nitrogen 35 mg/dL (8-26); Carbon Dioxide 25 mmol/L (22-30); Chloride 101 mmol/L (98-109); Estimated Glomerular Filt Rate 32; Glucose 131 mg/dL (70-105); Ionized Calcium (POC) 1.14 mmol/L (1.11-1.31); Sodium 138 mmol/L (138-146)
== END 2022-09-18 08:32 | disposition home or self-care (01) ==
LOC: ANHLAB 08:34
PROVIDERS: PCP Family Medicine; Visit Provider Internal Medicine Hematology & Oncology
DX: D64.9 Anemia, unspecified (principal)
CPT/HCPCS: 36415; 80047; 85025

== ENCOUNTER 2022-12-25 09:08 | Outpatient (CLI) | payer MEDICARE, OTHER, SELFPAY ==
[2022-12-25 09:41] LABS: Basophils Percent Auto 0.3 % (0.2-1.2); Eosinophils Absolute Auto 0.2 K/mm3 (0-0.3); Eosinophils Percent Auto 3.3 % (0-4.4); Immature Granulocyte Absolute 0.01 K/mm3 (0.00-0.031); Immature Granulocyte Percent A 0.1 % (0-0.5); Lymphocytes Absolute Auto 1.14 K/mm3 (0.9-3.2); Lymphocytes Percent Auto 16.4 % (18.3-44.2); Mean Corpuscular HGB Conc 32.3 g/dl (32-36); Mean Corpuscular Hemoglobin 30.4 pg (26-34); Mean Corpuscular Volume 94.2 fl (80-100); Mean Platelet Volume 11.2 fl (7.4-10.4); Monocytes Absolute Auto 0.5 K/mm3 (0.1-0.6); Monocytes Percent Auto 7.5 % (2.6-8.5); Neutrophils Percent Auto 72.4 % (45.5-73.1); Platelet Count Result 230 k/mm3 (150-375); Red Blood Count 3.29 M/mm3 (4.6-6.20); Red Cell Distribution Width 14.4 % (11.5-14.5)
[2022-12-25 09:45] LABS: Blood Urea Nitrogen 30 mg/dL (8-26); Carbon Dioxide 27 mmol/L (22-30); Chloride 101 mmol/L (98-109); Estimated Glomerular Filt Rate 39; Glucose 113 mg/dL (70-105); Ionized Calcium (POC) 1.16 mmol/L (1.11-1.31); Potassium 4.6 mmol/L (3.5-4.9); Sodium 138 mmol/L (138-146)
== END 2022-12-25 09:09 | disposition home or self-care (01) ==
LOC: ANHLAB 09:12
PROVIDERS: PCP Emergency Medicine; Visit Provider Internal Medicine Hematology & Oncology
DX: D64.9 Anemia, unspecified (principal)
CPT/HCPCS: 36415; 80047; 85025

== ENCOUNTER 2023-05-02 08:04 | Emergency (ER) | payer MEDICARE, OTHER, SELFPAY ==
--- NOTE | ~2023-05-02 | CT_ITS ---
EXAMINATION: CT brain wo con DATE: 05/02/2023 08:49 INDICATION: Head injury. Patient fell and struck back of head. No loss of consciousness. TECHNIQUE: Computed tomography (CT) of the head was performed without intravenous contrast. The mA wa s adjusted according to patient size. Iterative reconstruction technique was employed. Exam dose: 60 5.33 mGy-cm total exam DLP. COMPARISON: 08/12/2022 CT brain FINDINGS: Prominent bilateral vertebral artery calcification. Basilar artery calcification. Prominent bilateral carotid siphon internal carotid artery calcifications. There is nonspecific diminished attenuation of the cerebral white matter, likely due to chronic small vessel ischemic changes. Old left cerebellar hemispheric infarct. No intracranial mass lesion or hemorrhage or recent cerebrovascular accident, midline shift or mass e ffect effect is detected. Moderate cerebral and cerebellar volume loss. No subdural or epidural hematoma is detected. Old blowout fracture of the medial wall the right orbit. Included paranasal sinuses and mastoid air c ells are unremarkable. No fracture or bone destruction of the cranial vault. IMPRESSION: No skull fracture or acute intracranial finding Cerebral atherosclerosis and chronic small vessel ischemic changes of cerebral white matter Old left cerebellar infarct Reviewed, dictated and finalized at [facility]. Reviewed, dictated and finalized at [facility].
[2023-05-02 08:19] VITALS: BP 212/70; PULSE 89; RESP 20; TEMP 36.8; O2SAT 100
--- NOTE | 2023-05-02 08:20 | ED.FALL ---
HPI - Fall General Chief Complaint: Fall Stated Complaint: FALL Time Seen by Provider: 05/02/23 08:11 History of Present Illness HPI Narrative: Pt lost balance this morning and fell backward striking head on floor. Pt denies LOC. Pt has no significant ROCHA. Pt says he is a little dizzy when he moves his head. Pt denies weakness or numbness. Pt is on eliquis. Related Data Home Medications Medication Instructions Recorded Confirmed ezetimibe 10 mg tablet 10 mg PO DAILY 04/18/19 03/30/23 magnesium 250 mg tablet 500 mg PO DAILY 04/07/20 03/30/23 umeclidinium 62.5 mcg-vilanterol 1 inh inhalation DAILY PRN 02/17/22 03/30/23 25 mcg/actuation powdr for inhalation (Anoro Ellipta) calcium carbonate 200 mg calcium 200 mg PO TID 05/24/22 03/30/23 (500 mg) chewable tablet (Tums) isosorbide dinitrate 20 mg tablet 30 mg PO DAILY 10/03/22 03/30/23 ferrous sulfate 325 mg (65 mg 325 mg PO DAILY 12/28/22 03/30/23 iron) tablet (Feosol) pantoprazole 40 mg tablet,delayed 40 mg PO BID 12/28/22 03/30/23 release valsartan 160 mg tablet 80 mg PO DAILY 12/28/22 03/30/23 cholecalciferol (vitamin D3) 50 50 mcg PO DAILY 03/27/23 03/27/23 mcg (2,000 unit) capsule furosemide 40 mg tablet 40 mg PO QAM 03/27/23 03/30/23 ondansetron 4 mg disintegrating 4 mg PO .PRN 03/27/23 03/30/23 tablet oxybutynin chloride 10 mg 10 mg PO .QHC 03/27/23 03/30/23 tablet,extended release 24 hr sucralfate 1 gram tablet 1 g PO BID 03/27/23 03/30/23 Allergies Allergy/AdvReac Type Severity Reaction Status Date / Time hydrochlorothiazide Allergy Unknown low sodium Verified 05/02/23 08:25 niacin Allergy Unknown flashes Verified 05/02/23 08:25 Review of Systems Review of Systems: All systems reviewed & are unremarkable except as noted in HPI and below PMFSH Past Medical History Medical History Anemia in chronic kidney disease CAD (coronary artery disease) [facility] 2011 3v disease Carotid stenosis 2-21 65% Needs yearly dopplers 5- Left caortid > 70% blocked Carpal tunnel syndrome of right wrist Cataract fragments in both eyes following surgery CKD (chronic kidney disease) Sees Dr Hogan COPD (chronic obstructive pulmonary disease) PFT showing mild obstruction 2014 CVA (cerebral vascular accident) MRI 2018 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 Diastolic CHF EF 69%, Grade 1 DD Echo 01/2019 Diverticulosis Dyslipidemia Dysphagia 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pinal stenosis TIA (transient ischemic attack) 2019 on eliquis Tubular adenoma of colon by colo April 2019 Surgical History Surgical History History of carpal tunnel release right in 2018 History of prostate surgery Hx of CABG 4v in 01/2012 at [place] Hx of cataract surgery Hx of cholecystectomy 2001 Family History Family History Sibling Family history of cardiovascular disease, Onset Age: 80 Father Family history of sudden , Onset Age: 43 Sibling Pulmonary fibrosis Sibling STEMI (ST elevation myocardial infarction) Mother Parkinson disease Other Malignant neoplasm of prostate Social History Social History Social History: Patient quit smoking in the 1980s. Denies alcohol or drug use. He is home with his . They have a dog. Patient is full code. He nominates his to be the individual would make medical decisions for him if he is not able Caffeine- coffee daily Smoking packs per day: 2.5 Smoking
[2023-05-02 10:22] VITALS: BP 197/56; PULSE 62; RESP 14; O2SAT 98
[2023-05-02 10:25] VITALS: BP 197/56; PULSE 76; RESP 20; O2SAT 99
== END 2023-05-02 10:36 | disposition home or self-care (01) ==
PROVIDERS: Emergency Provider Emergency Medicine; PCP Family Medicine
DX: S09.90XA Unspecified injury of head, initial encounter (principal); N18.9 Chronic kidney disease, unspecified; D63.1 Anemia in chronic kidney disease; J44.9 Chronic obstructive pulmonary disease, unspecified; I25.10 Atherosclerotic heart disease of native coronary artery without angina pectoris; I50.30 Unspecified diastolic (congestive) heart failure; E78.5 Hyperlipidemia, unspecified; G47.33 Obstructive sleep apnea (adult) (pediatric); Z95.1 Presence of aortocoronary bypass graft; Z86.718 Personal history of other venous thrombosis and embolism; Z86.711 Personal history of pulmonary embolism; Z86.73 Personal history of transient ischemic attack (TIA), and cerebral infarction without residual deficits; Z85.46 Personal history of malignant neoplasm of prostate; Z87.891 Personal history of nicotine dependence; Z98.49 Cataract extraction status, unspecified eye; Z90.49 Acquired absence of other specified parts of digestive tract; Z90.79 Acquired absence of other genital organ(s); Z79.01 Long term (current) use of anticoagulants; W18.39XA Other fall on same level, initial encounter
CPT/HCPCS: 70450; 99284

== ENCOUNTER 2023-09-15 10:57 | Emergency (ER) | payer MEDICARE, OTHER, SELFPAY ==
[2023-09-15] VITALS (8 sets, daily range): BP systolic 132–152; BP diastolic 37–45; PULSE 61–87; RESP 17–25; TEMP 36.6–37.1; O2SAT 95–98
--- NOTE | ~2023-09-15 | CT_ITS ---
EXAMINATION: CT abdomen pelvis w con DATE: 09/15/2023 13:38 INDICATION: Left lower quadrant abdominal pain. History of chronic renal disease, diverticulosis, gas tric ulcer, cholecystectomy and prostatectomy in 2001 for prostate cancer. TECHNIQUE: Computed tomography (CT) of the abdomen and pelvis was performed with 100 CC Omnipaque 350 intravenous contrast. Automated exposure control and iterative reconstruction technique were employe d. Exam dose: 485.64 mGy-cm total exam DLP. COMPARISON: 05/10/2021 CT abdomen pelvis FINDINGS: Mild/moderate bilateral pleural effusions with associated bilateral dependent compressive l ower lobe atelectasis. Cardiomegaly. Status post sternotomy. No pericardial effusion. Interval enlargement of pancreatic head mass, currently measuring approximately 3.4 x 3.7 cm dimensio n, consistent with pancreatic malignancy. There is associated pancreatic duct dilatation., Which ovidio ures up to 7 mm diameter. There is another larger heterogeneous T approximate 4.2 x 4.3 cm soft tissue mass at the distal tail of the pancreas, with ill-defined margins, with loss of the fat plane between the pancreatic tail and the spleen, possible splenic invasion. There is surrounding fatty infiltration. This is very suspici ous for a pancreatic tail malignancy, less likely pancreatitis. Normal morphology of the adrenal glan ds. No hepatic space-occupying mass lesion. 15 mm posterior upper pole left renal cyst. No urinary tract calculus or hydroureteronephrosis. There is a Gage catheter within the evacuated urinary bladder which is not evaluated as a result. Status post prostatectomy. Small fat-containing inguinal hernias, larger on the left. Small sliding hiatal hernia. Diverticulosis of the left colon, with greatest involvement of the sigmoid colon. No CT evidence of d iverticulitis. No bowel obstruction or intraperitoneal free air. There is extensive calcification of the abdominal aorta, celiac, hepatic, splenic, superior mesenteri c, renal and iliac arteries. No abdominal aortic aneurysm. Diffuse idiopathic skeletal hyperostosis of the thoracic spine. Multilevel degenerative disc disease of the lumbar spine, particularly severe at L3-4 and L4-5, with associated mild retrolisthesis at L2-3 and L3-4.. Prominent degenerative change at the apophyseal ayden nts. No suspicious osteolytic or osteoblastic lesions. 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 Reviewed, dictated and finalized at [facility]. 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
--- NOTE | 2023-09-15 12:10 | ED.GENADULT ---
HPI - General Adult General Chief complaint: Unspecified Stated complaint: left side pain with deep breathing Time Seen by Provider: 09/15/23 11:44 History of Present Illness HPI narrative: Patient is an 83-year-old male presenting with abdominal pain. States that he has had left lower quadrant pain since this morning. It is worsened with taking a big breath. Denies any chest pain. No diarrhea or constipation. No hematochezia or melena. Patient has a Gage catheter. States his nursing facility changes it once a month. No further complaints. Related Data Home Medications Medication Instructions Recorded Confirmed ezetimibe 10 mg tablet 10 mg PO DAILY 04/18/19 09/13/23 magnesium 250 mg tablet 500 mg PO DAILY 04/07/20 09/13/23 umeclidinium 62.5 mcg-vilanterol 1 inh inhalation DAILY PRN 02/17/22 09/13/23 25 mcg/actuation powdr for inhalation (Anoro Ellipta) calcium carbonate (Tums) 200 mg PO TID 05/24/22 09/13/23 isosorbide dinitrate 20 mg tablet 30 mg PO DAILY 10/03/22 09/13/23 ferrous sulfate 325 mg (65 mg 325 mg PO DAILY 12/28/22 09/13/23 iron) tablet (Feosol) pantoprazole 40 mg tablet,delayed 40 mg PO BID 12/28/22 09/13/23 release valsartan 160 mg tablet 80 mg PO DAILY 12/28/22 09/13/23 cholecalciferol (vitamin D3) 50 50 mcg PO DAILY 03/27/23 09/13/23 mcg (2,000 unit) capsule furosemide 40 mg tablet 40 mg PO QAM 03/27/23 09/13/23 ondansetron 4 mg disintegrating 4 mg PO .PRN 03/27/23 09/13/23 tablet oxybutynin chloride 10 mg 10 mg PO .QHC 03/27/23 09/13/23 tablet,extended release 24 hr sucralfate 1 gram tablet 1 g PO BID 03/27/23 09/13/23 Allergies Allergy/AdvReac Type Severity Reaction Status Date / Time hydrochlorothiazide Allergy Unknown low sodium Verified 09/15/23 10:58 niacin Allergy Unknown flashes Verified 09/15/23 10:58 Review of Systems Review of Systems: All systems reviewed & are unremarkable except as noted in HPI and below PMFSH Past Medical History Medical History Anemia in chronic kidney disease CAD (coronary artery disease) [facility] 2011 3v disease Carotid stenosis 2-21 65% Needs yearly dopplers 5-22 Left caortid > 70% blocked Carpal tunnel syndrome of right wrist Cataract fragments in both eyes following surgery CKD (chronic kidney disease) Sees Dr Hogan COPD (chronic obstructive pulmonary disease) PFT showing mild obstruction 2014 CVA (cerebral vascular accident) MRI 2018 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 Diastolic CHF EF 69%, Grade 1 DD Echo 01/2019 Diverticulosis Dyslipidemia Dysphagia 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pinal stenosis TIA (transient ischemic attack) 2019 on eliquis Tubular adenoma of colon by colo April 2019 Surgical History Surgical History History of carpal tunnel release right in 2018 History of prostate surgery Hx of CABG 4v in 01/2012 at [place] Hx of cataract surgery Hx of cholecystectomy 2001 Family History Family History Sibling Family history of cardiovascular disease, Onset Age: 80 Father Family history of sudden , Onset Age: 43 Sibling Pulmonary fibrosis Sibling STEMI (ST elevation myocardial infarction) Mother Parkinson disease Other Malignant neoplasm of prostate Social History Social History Social History: Patient quit smoking in the 1980s. Denies alcohol or drug use. He is home with his . They have a dog. Patient is full code.
[2023-09-15 13:00] LABS: Basophils Percent Auto 0.2 % (0.2-1.2); Eosinophils Absolute Auto 0.2 K/mm3 (0-0.3); Eosinophils Percent Auto 2.6 % (0-4.4); Hematocrit 25.3 % (42.0-52.0); Immature Granulocyte Absolute 0.03 K/mm3 (0.00-0.031); Immature Granulocyte Percent A 0.4 % (0-0.5); Lymphocytes Absolute Auto 1.07 K/mm3 (0.9-3.2); Lymphocytes Percent Auto 12.6 % (18.3-44.2); Mean Corpuscular HGB Conc 31.6 g/dl (32-36); Mean Corpuscular Hemoglobin 28.4 pg (26-34); Mean Corpuscular Volume 89.7 fl (80-100); Mean Platelet Volume 12.4 fl (7.4-10.4); Monocytes Absolute Auto 0.9 K/mm3 (0.1-0.6); Monocytes Percent Auto 10.4 % (2.6-8.5); Neutrophils Absolute Auto 6.3 K/mm3 (1.3-6.7); Neutrophils Percent Auto 73.8 % (45.5-73.1); Platelet Count Result 211 k/mm3 (150-375); Red Blood Count 2.82 M/mm3 (4.6-6.20); Red Cell Distribution Width 16.3 % (11.5-14.5); White Blood Count 8.5 K/mm3 (4.5-10.0)
[2023-09-15 13:10] LABS: Alanine Aminotransferase 55 U/L (6-50); Albumin Level 3.3 g/dL (3.5-5.1); Alkaline Phosphatase 102 U/L (38-126); Anion Gap 9 mmol/L (4-12); Aspartate Amino Transferase 36 U/L (17-59); Bilirubin,Total 0.4 mg/dL (0.2-1.3); Blood Urea Nitrogen 45 mg/dL (9-20); Calcium 8.4 mg/dL (8.4-10.2); Carbon Dioxide 30 mmol/L (22-30); Chloride 91 mmol/L (98-107); Estimated CRCL calculation 33 ml/min; Estimated Glomerular Filt Rate 52; Glucose 164 mg/dL (65-110); Lipase 19 U/L (23-300); Potassium 3.9 mmol/L (3.4-5.0); Sodium 130 mmol/L (137-145)
[2023-09-15 13:16] LABS: Add Urine Microscopic? YES; Appearance Urine Clear (Clear); Bacteria Urine 4+ /hpf; Bilirubin Urine Negative (Negative); Blood Urine Negative (Negative); Color Urine Yellow (Yellow); Glucose Urine UA Negative (Negative); Ketones Urine Negative (Negative); Leukocyte Esterase Ur 2+ LEU/UL (Negative); Need Manual Microscopic Reviewed; Nitrate Urine Negative (Negative); Protein Urine Trace mg/dL (Negative); RBC Urine 0-2 /hpf (0-2); Specific Grav Ur 1.007 (1.001-1.035); Squamous Epithelial Cell Urine None Seen /hpf (Few); Urobilinogen Urine 0.2 mg/dL (<2.0); WBC Urine 21-50 /hpf (0-3); pH Urine 7.5 (5.0-9.0)
[2023-09-15] MEDS: LIDOCAINE 5% PATCH 1 PATCH TRANSDERM (14:15)
--- NOTE | 2023-09-15 15:22 | PC.NURSE ---
pt daughter to nurses station asking if he can be taken back by [facility]. call was made to [facility] to check on transport availability and they stated that their transport is not driving today.
[2023-09-15] MEDS: CEPHALEXIN 500 MG CAPSULE PO (15:29)
== END 2023-09-15 15:40 | disposition home or self-care (01) ==
PROVIDERS: Emergency Provider Emergency Medicine; PCP Family Medicine
DX: R10.32 Left lower quadrant pain (principal); R10.12 Left upper quadrant pain; R82.998 Other abnormal findings in urine; C25.9 Malignant neoplasm of pancreas, unspecified; N18.9 Chronic kidney disease, unspecified; D63.1 Anemia in chronic kidney disease; I65.23 Occlusion and stenosis of bilateral carotid arteries; I50.30 Unspecified diastolic (congestive) heart failure; J44.9 Chronic obstructive pulmonary disease, unspecified; E78.5 Hyperlipidemia, unspecified; G47.33 Obstructive sleep apnea (adult) (pediatric); Z95.1 Presence of aortocoronary bypass graft; Z86.73 Personal history of transient ischemic attack (TIA), and cerebral infarction without residual deficits; Z86.718 Personal history of other venous thrombosis and embolism; Z86.711 Personal history of pulmonary embolism; Z85.46 Personal history of malignant neoplasm of prostate; Z87.891 Personal history of nicotine dependence; Z90.79 Acquired absence of other genital organ(s); Z90.49 Acquired absence of other specified parts of digestive tract; J90 Pleural effusion, not elsewhere classified; K44.9 Diaphragmatic hernia without obstruction or gangrene; K57.90 Diverticulosis of intestine, part unspecified, without perforation or abscess without bleeding; I70.0 Atherosclerosis of aorta; N28.1 Cyst of kidney, acquired; K40.20 Bilateral inguinal hernia, without obstruction or gangrene, not specified as recurrent; M47.816 Spondylosis without myelopathy or radiculopathy, lumbar region; M47.814 Spondylosis without myelopathy or radiculopathy, thoracic region; Z79.01 Long term (current) use of anticoagulants; Z79.899 Other long term (current) drug therapy
CPT/HCPCS: 36415; 74177; 80053; 81001; 83690; 85025; 87086; 87088; 99284; A9270; Q9967